=== PATIENT | female | born 1990 | race Caucasian/White ===

== ENCOUNTER 2022-02-15 04:08 | Inpatient (IN) ==
[2022-02-15] MEDS ORDERED: LIDOCAINE 1% LOCAL 20 ML VIAL INFIL PRN (07:05)
[2022-02-15] MEDS ORDERED: OXYTOCIN 30 UNITS/500 ML BAG IV PRN ×3 (07:05→15:20)
--- NOTE | 2022-02-15 07:11 | History & Physical Report ---
Date of Service February 15, 2022 Assessment & Plan (1) Uterine contractions: Plan: 71-elwh-osd-year-old man P0 at 40 weeks and 4 days of gestation presenting with uterine contractions and cervical change, Vital signs stable afebrile, heart rate reassuring, GBS negative, Contractions present but irregular, discussed augmentation with oxytocin per protocol and she agreed. Plan to admit monitor, labs, oxytocin per protocol, All questions were answered. (2) Post-term , 40-42 weeks of gestation: History of Present Illness Chief Complaint: Contractions Primary Care Provider: NO PCP Patient is a 31-year-old G1, P0 at 40 weeks and 4 days of gestation who has been feeling contractions since 12:30 AM this morning. They got more regular and painful after 3 AM. She denies vaginal bleeding nor leakage of fluid. She reports good movements. Her has been uncomplicated except she has a history of hypothyroidism and she takes levothyroxine. When she came here her cervix was 2 cm dilated 70% effaced and -2 per her nurse. Her contractions were every 3 to 6 minutes. She walked around for about 2 hours and came back and she states her contractions are closer and stronger. Allergies Allergy/AdvReac Type Severity Reaction Status Date / Time Penicillins Allergy Unknown RASH Verified 02/15/22 04:22 Home Medications Medication Instructions Recorded Confirmed Type levothyroxine 112 mcg tablet 112 mcg PO DAILY 01/19/22 02/15/22 History vit no.95-ferrous 1 tab PO DAILY 01/19/22 02/15/22 History fumarate 28 mg-folic acid 800 mcg tablet () Patient History Medical History COVID-19 09/2021. Hypothyroidism Surgical History H/O removal of cyst Cyst removal on left hand. [place] teeth extracted 2019 Family History Father Lung cancer Cancer Aunt Breast cancer Aunt Ovarian cancer Mother Hypothyroidism Social History Smoking Status: Never smoker Second Hand Exposure: No; Hx Alcohol Use: No Hx Substance Use: No Preferred Language: Kinyarwanda Communication Ability: Effective Visual Impairment: No Limitations Hearing Ability: Normal Aromatherapist Required: No Beliefs That Will Affect Care: None marital status: marital status details: James Abraham Current Living Situation: Spouse current occupational status: employed current occupation: school counselor How many Children do You have: 0 Other Information That Helps Us Care for You: No Feels Safe at Home: Yes Safety Concerns: Feels Safe At This Time Childhood Exposure to Second-Hand Smoke: No Do you think of yourself as: straight/heterosexual Gender Identity: Female Assistive Devices: Contacts and Glasses MEDICAL BILLING ASSISTANT History Denies history of STDs including chlamydia, gonorrhea, herpes Review of Systems as per Subjective / HPI Physical Exam Constitutional: WD/WN, vitals as above well developed, well nourished and + acute distress (With contractions only) Gastrointestinal (Abdomen): normal bowel sounds, soft, nontender, no hepatosplenomegaly (gravid) Genitourinary: normal external appearance OB Exam Abdomen: + vertex Manual OB Exam: + cervical dilation 3 cm, + cervical effacement 70% and + station -2 OB Exam Monitor Tracing: + external uterine monitor used and + category I Results & Data ([facility]) Vital Signs (Past 12 Hours) Vital Signs Temp Pulse Resp BP 02/15/22 04:24 36.9 C 94 H 18 112/74 02/15/22 07:06 108 H 02/15/22 07:06 120/83 02/15/22 04:19 18 02/15/22 04:19 36.9 C 18 02/15/22 04:18 94 H 112/74
[2022-02-15 07:23] LABS: Hematocrit (blood only) 35.9 % (34.1-44.9); Hemoglobin 12.7 g/dl (12.0-16.0); Mean Corpuscular Hemoglobin 32.1 pg (25.0-34.0); Mean Corpuscular Hgb Conc 35.4 g/dL (32.0-36.0); Mean Corpuscular Volume 90.7 fL (80.0-100.0); Mean Platelet Volume 9.4 fL (9.4-12.3); Platelet Count 221 K/uL (130-400); RDW Coefficient of Variation 12.6 % (11.5-14.5); Red Blood Count 3.96 M/uL (3.93-5.22); White Blood Count 14.17 K/ul (4.8-10.8)
[2022-02-15] MEDS: LEVOTHYROXINE SODIUM 112 MCG TABLET PO SCH (07:38)
[2022-02-15] MEDS: LACTATED RINGER'S 1,000 ML IV PRN ×2 (08:15→09:50)
[2022-02-15] MEDS ORDERED: fentaNYL citrate 100 MCG/2 ML VIAL ONE (08:55)
[2022-02-15] MEDS ORDERED: ePHEDrine sulfate 50 MG/ML AMP ONE (08:55)
[2022-02-15] MEDS ORDERED: SODIUM CHLORIDE 0.9% INJ 10 ML VIAL ONE (08:55)
[2022-02-15] MEDS ORDERED: LIDOCAINE 2%/EPINEPHRINE 1:200,000 20 ML SDV ONE (08:56)
[2022-02-15] MEDS ORDERED: BUPIVACAINE 0.25% 30 ML VIAL ONE (08:56)
[2022-02-15] MEDS ORDERED: fentaNYL 2MCG/ML ROPIVACAINE 1.25MG/ML 100 ML BAG EPI ONE (08:56)
--- NOTE | 2022-02-15 10:05 | Anesthesiology Consultation ---
Date of Service February 15, 2022 Assessment & Plan Chart Review Chart Review: Acceptable Risk for Labor Epidural Consults Requested none History Height/Weight Height: 5 ft 10 in Weight: 112.945 kg Allergies Allergy/AdvReac Type Severity Reaction Status Date / Time Penicillins Allergy Unknown RASH Verified 02/15/22 04:22 Medications Home Medications Medication Instructions Recorded Confirmed Last Taken levothyroxine 112 mcg tablet 112 mcg PO DAILY 01/19/22 02/15/22 02/14/22 06:00 vit no.95-ferrous 1 tab PO DAILY 01/19/22 02/15/22 01/18/22 21:00 fumarate 28 mg-folic acid 800 mcg tablet () Active Medications Generic Name Dose Route Start Last Admin Trade Name Freq PRN Reason Stop Dose Admin Lactated Ringer's 1,000 mls @ 150 mls/hr 02/15/22 07:05 02/15/22 09:50 Lr IV 02/17/22 07:04 125 mls/hr .[id number] PRN Administration L&D Protocol Protocol Oxytocin 30 units in 500 mls @ 2 mls/hr 02/15/22 07:07 02/15/22 09:05 Pitocin IV 02/17/22 07:06 0.12 units/hr .Q24H PRN 2 mls/hr Labor Induction/Augmentation Administration Protocol 0.12 UNITS/HR Levothyroxine Sodium 112 mcg 02/15/22 07:00 02/15/22 07:38 Levothyroxine Sodium 112 Mcg Tablet PO 03/17/22 06:59 112 mcg DAILYBB OMEGA Administration Past Medical History Medical History COVID-19 09/2021. Hypothyroidism Past Family History Family History Father Lung cancer Cancer Aunt Breast cancer Aunt Ovarian cancer Mother Hypothyroidism Past Surgical History Surgical History H/O removal of cyst Cyst removal on left hand. [place] teeth extracted 2019 Social History Smoking Status: Never smoker Hx Alcohol Use: No Hx Substance Use: No substance use type: does not use Physical Exam Vital Signs Last Vital Signs Temp 36.9 C 02/15/22 09:55 Pulse 95 H 02/15/22 10:03 Resp 16 02/15/22 09:55 BP 124/58 L 02/15/22 10:03 Pulse Ox 99 02/15/22 10:03 Testing Laboratory Results 02/15/22 07:13 Blood Type Cancelled 02/15/22 07:13 Blood Type O Positive 02/15/22 07:13 Antibody Screen Cancelled 02/15/22 07:13 Antibody Screen NEGATIVE 02/15/22 07:13
[2022-02-15] MEDS ORDERED: NALBUPHINE HCL INJ 10 MG/ML AMP IV PRN (10:07)
[2022-02-15] MEDS ORDERED: ePHEDrine sulfate 50 MG/ML AMP IV PRN (10:07)
[2022-02-15] MEDS ORDERED: NALOXONE HCL 0.4 MG/1 ML VIAL/CARP IV PRN (10:07)
[2022-02-15] MEDS ORDERED: NALOXONE HCL 1 MG in SODIUM CHLORIDE 0.9% 1000ML 1,000 ML IV PRN (10:07)
[2022-02-15] MEDS ORDERED: fentaNYL 2MCG/ML ROPIVACAINE 1.25MG/ML 100 ML BAG EPI PRN (10:07)
[2022-02-15] MEDS ORDERED: diphenhydrAMINE 50 MG/ML VIAL IV PRN (10:07)
--- NOTE | 2022-02-15 12:01 | Labor Progress Brief Note ---
Date of Service February 15, 2022 Assessment & Plan (1) Post-term , 40-42 weeks of gestation: Plan: Labor augmentation Pt doing well Epidural analgesia FHR; CAT1 Ctx 3-4mins VE;5/50/-1 Pit; 10MU AROM; with amnio hook- clear fluid contiue with Pitocin augmentation Admission and Anticipated Discharge Date Admission Date: February 15, 2022 Results & Data ([facility]) Vital Signs (Past 12 Hours) Vital Signs Temp Pulse Resp BP Pulse Ox 02/15/22 04:24 36.9 C 94 H 18 112/74 02/15/22 11:53 100 02/15/22 11:53 86 02/15/22 11:48 98 02/15/22 11:48 75 02/15/22 11:48 113/59 L 02/15/22 11:43 98 02/15/22 11:43 71 02/15/22 11:38 99 02/15/22 11:38 72 02/15/22 11:33 98 02/15/22 11:33 74 02/15/22 11:32 74 02/15/22 11:32 115/59 L 02/15/22 11:28 97 02/15/22 11:28 76 02/15/22 11:23 99 02/15/22 11:23 70 02/15/22 11:18 99 02/15/22 11:18 75 02/15/22 11:17 85 02/15/22 11:17 104/57 L 02/15/22 11:13 98 02/15/22 11:13 78 02/15/22 11:08 99 02/15/22 11:08 75 02/15/22 11:03 99 02/15/22 11:03 79 02/15/22 11:03 76 02/15/22 11:03 106/59 L 02/15/22 10:58 96 02/15/22 10:58 96 H 02/15/22 10:53 98 02/15/22 10:53 84 02/15/22 10:48 99 02/15/22 10:48 82 02/15/22 10:47 78 02/15/22 10:47 109/59 L 02/15/22 10:43 99 02/15/22 10:43 93 H 02/15/22 10:38 98 02/15/22 10:38 88 02/15/22 10:33 99 02/15/22 10:33 89 02/15/22 10:34 86 02/15/22 10:34 109/64 02/15/22 10:28 98 02/15/22 10:28 79 02/15/22 10:23 99 02/15/22 10:23 90 02/15/22 10:18 99 02/15/22 10:18 91 H 02/15/22 10:18 92 H 02/15/22 10:18 115/70 02/15/22 10:13 97 02/15/22 10:13 82 02/15/22 10:08 99 02/15/22 10:08 82 02/15/22 10:03 99 02/15/22 10:03 95 H 02/15/22 10:03 124/58 L 02/15/22 09:58 97 02/15/22 09:58 95 H 02/15/22 09:40 18 02/15/22 09:40 18 02/15/22 09:55 16 02/15/22 09:55 36.9 C 16 02/15/22 09:53 98 02/15/22 09:53 89 02/15/22 09:48 98 02/15/22 09:48 106 H 02/15/22 09:47 109 H 02/15/22 09:47 110/64 02/15/22 09:43 97 02/15/22 09:43 91 H 02/15/22 09:42 75 02/15/22 09:42 110/59 L 02/15/22 09:38 98 02/15/22 09:38 88 02/15/22 09:36 85 02/15/22 09:36 128/66 02/15/22 09:33 99 02/15/22 09:33 96 H 02/15/22 09:28 99 02/15/22 09:28 103 H 02/15/22 09:23 98 02/15/22 09:23 98 H 02/15/22 09:18 97 02/15/22 09:18 91 H 02/15/22 09:13 97 02/15/22 09:13 89 02/15/22 09:03 87 02/15/22 09:03 116/70 02/15/22 07:06 108 H 02/15/22 07:06 120/83 02/15/22 04:19 18 02/15/22 04:19 36.9 C 18 02/15/22 04:18 94 H 112/74
[2022-02-15] MEDS ORDERED: METHYLERGONOVINE MALEATE 0.2 MG/ML AMP ONE (15:00)
[2022-02-15] MEDS ORDERED: miSOPROStoL 200 MCG TAB ONE (15:00)
[2022-02-15] MEDS ORDERED: DIPHTHERIA/TETANUS/PERTUSSIS 0.5 ML SYR/VIAL IM ONE (15:20)
[2022-02-15] MEDS ORDERED: ACETAMINOPHEN 325 MG TAB PO PRN (15:20)
[2022-02-15] MEDS ORDERED: bisacodyL 10 MG SUPP PR PRN (15:20)
[2022-02-15] MEDS ORDERED: METHYLERGONOVINE MALEATE 0.2 MG/ML AMP IM ONE (15:20)
[2022-02-15] MEDS ORDERED: BENZOCAINE 20% AER SPR 82.5 GM CAN EXT PRN (15:20)
[2022-02-15] MEDS ORDERED: miSOPROStoL 200 MCG TAB PR ONE (15:20)
[2022-02-15] MEDS ORDERED: HYDROCORTISONE ACETATE 25 MG SUPP PR PRN (15:20)
[2022-02-15 15:31] LABS: Base Excess Cord Arterial Bld -3.2 mEq/L (-9-1.8); CO2 Cord Arterial Blood 43 mmHg (39.1-73.5); HCO3 Cord Arterial Blood 23 mmol/L (19.7-28.5); Oxygen Sat Cord Arterial Blood < 60.0 % (<60); PO2 Cord Arterial Blood 25 mmHg (4.1-31.7); pH Cord Arterial Blood 7.33 (7.1-7.38)
[2022-02-15 15:32] LABS: Base Excess Cord Venous Blood -2.8 mEq/L (-7.7-1.9); Cord Venous Blood HCO3 23 mmol/L (18.4-26.8); Cord Venous Blood PCO2 44 mmHg (30.4-57.2); Cord Venous Blood PO2 26 mmHg (14.1-43.3); Cord Venous Blood pH 7.33 (7.20-7.44); O2 Saturation Cord Venous Bld < 60.0 % (<68)
--- NOTE | 2022-02-15 15:50 | Delivery Summary ---
DATE OF SERVICE: 02/15/2022 DELIVERY NOTE: The patient delivered a live , left occiput anterior presentation with a right hand compound presentation. Infant was delivered and placed on mother's abdomen. Delayed cord clamp was performed. Cord gases were obtained. Placenta was spontaneously delivered. Inspection of the placenta shows a normal-looking placenta with 3-vessel cord. Inspection of the perineum shows bilateral periurethral tears, which were repaired with 3-0 Vicryl. Rectal exam post-repair showed good sphincter tone. A red catheter was placed into the bladder to em pty the bladder after the periurethral tears. Estimated blood loss is 450 mL. Baby and mother are doing well in recovery. There was good hemostasi s. All sponges and needles were removed and accounted for x2. The patient is stable in recovery. Job ID: [id number]
--- NOTE | 2022-02-15 16:16 | Anesthesia Procedure Note ---
Date of Service February 15, 2022 Anesthesia Post Epidural Note Vital Signs Vital Signs: Temp Pulse Resp BP Pulse Ox 37.1 C 80 18 119/67 98 02/15/22 14:00 02/15/22 16:02 02/15/22 14:00 02/15/22 16:02 02/15/22 15:18 Notes Mental Status: alert / awake / arousable Nausea / Vomiting: adequately controlled Pain: adequately controlled Airway Patency, RR, SpO2: stable & adequate BP & HR: stable & adequate Hydration State: stable & adequate Neuraxial Anesthesia: was administered and sensory block is resolving Anesthetic Complications: no major complications apparent and Pt Satisfied with anesthetic care Epidural: Removed without complications and With tip intact
[2022-02-15] MEDS: DOCUSATE SODIUM 100 MG CAP PO SCH (20:47)
[2022-02-15] MEDS: IBUPROFEN 600 MG TAB PO PRN (20:49)
[2022-02-16] MEDS: IBUPROFEN 600 MG TAB PO PRN ×4 (03:44→22:18)
[2022-02-16] MEDS ORDERED: LEVOTHYROXINE SODIUM 112 MCG TABLET PO SCH (06:30)
[2022-02-16 06:51] LABS: Hematocrit (blood only) 33.9 % (34.1-44.9); Hemoglobin 11.8 g/dl (12.0-16.0); Mean Corpuscular Hemoglobin 31.5 pg (25.0-34.0); Mean Corpuscular Hgb Conc 34.8 g/dL (32.0-36.0); Mean Corpuscular Volume 90.4 fL (80.0-100.0); Mean Platelet Volume 9.7 fL (9.4-12.3); Platelet Count 198 K/uL (130-400); RDW Standard Deviation 42.4 fL (36.4-46.3); Red Blood Count 3.75 M/uL (3.93-5.22); White Blood Count 14.18 K/ul (4.8-10.8)
[2022-02-16] MEDS: LEVOTHYROXINE SODIUM 112 MCG TABLET PO SCH (06:55)
[2022-02-16] MEDS: PRENATAL VITAMIN 1 TAB PO SCH (08:25)
[2022-02-16] MEDS: DOCUSATE SODIUM 100 MG CAP PO SCH ×2 (08:25→22:18)
--- NOTE | 2022-02-16 11:21 | Obstetrical Progress Note ---
Date of Service February 16, 2022 Subjective Ambulation: ambulating normally Voiding: no voiding problems Passing Gas:: Yes Diet Tolerance:: regular diet Lochia:: Small Feeding Type:: breast feeding Current Pain Level(1-10): 0 Physical Exam Constitutional WD/WN, vitals as above Gastrointestinal (Abdomen) abdomen soft/fundus firm below U Musculoskeletal Extremities: extremities normal to inspection Skin no rashes, warm and dry Neurologic patellar DTR's 2+ bilat, sensation intact Psychiatric A+Ox3, euthymic affect Results & Data ([facility]) Vital Signs (Past 12 Hours) Vital Signs Temp Pulse Resp BP Pulse Ox O2 Del Method 02/16/22 07:25 36.7 C 70 18 112/71 97 Room Air 02/16/22 03:45 36.5 C 72 18 105/70 97 Room Air 02/15/22 23:30 36.5 C 70 18 113/72 97 Room Air Laboratory Results 02/15/22 02/15/22 02/15/22 07:12 07:13 07:13 WBC 14.17 H RBC 3.96 Hgb 12.7 Hct 35.9 MCV 90.7 MCH 32.1 MCHC 35.4 RDW Std Deviation 42.0 RDW Coeff of Torres 12.6 Plt Count 221 MPV 9.4 Cord ABG pH Cord ABG pCO2 Cord ABG pO2 Cord ABG HCO3 Cord ABG Base Excess Cord ABG O2 Sat Cord VBG pH Cord VBG pCO2 Cord VBG pO2 Cord VBG HCO3 Cord VBG Base Excess Cord VBG O2 Sat Blood Gas Comments SARS-CoV-2, RNA, NAAT NEGATIVE Blood Type O Positive Antibody Screen NEGATIVE 02/15/22 02/15/22 02/15/22 07:13 14:55 14:55 WBC RBC Hgb Hct MCV MCH MCHC RDW Std Deviation RDW Coeff of Torres Plt Count MPV Cord ABG pH 7.33 Cord ABG pCO2 43 Cord ABG pO2 25 Cord ABG HCO3 23 Cord ABG Base Excess -3.2 Cord ABG O2 Sat < 60.0 Cord VBG pH 7.33 Cord VBG pCO2 44 Cord VBG pO2 26 Cord VBG HCO3 23 Cord VBG Base Excess -2.8 Cord VBG O2 Sat < 60.0 Blood Gas Comments WETZEL WETZEL SARS-CoV-2, RNA, NAAT Blood Type Cancelled Antibody Screen Cancelled 02/16/22 05:56 WBC 14.18 H RBC 3.75 L Hgb 11.8 L Hct 33.9 L MCV 90.4 MCH 31.5 MCHC 34.8 RDW Std Deviation 42.4 RDW Coeff of Torres 13.0 Plt Count 198 MPV 9.7 Cord ABG pH Cord ABG pCO2 Cord ABG pO2 Cord ABG HCO3 Cord ABG Base Excess Cord ABG O2 Sat Cord VBG pH Cord VBG pCO2 Cord VBG pO2 Cord VBG HCO3 Cord VBG Base Excess Cord VBG O2 Sat Blood Gas Comments SARS-CoV-2, RNA, NAAT Blood Type Antibody Screen
[2022-02-16] MEDS ORDERED: bisacodyL 5 MG TABEC PO SCH ×2 (20:00)
[2022-02-17] MEDS: LEVOTHYROXINE SODIUM 112 MCG TABLET PO SCH (06:22)
[2022-02-17 06:50] LABS: Hemoglobin 12.2 g/dl (12.0-16.0)
[2022-02-17] MEDS: IBUPROFEN 600 MG TAB PO PRN (07:55)
[2022-02-17] MEDS: PRENATAL VITAMIN 1 TAB PO SCH (07:55)
[2022-02-17] MEDS: DOCUSATE SODIUM 100 MG CAP PO SCH (07:55)
--- NOTE | 2022-02-17 08:50 | Progress Note ---
Date of Service February 17, 2022 Assessment & Plan Admission and Anticipated Discharge Date Admission Date: February 15, 2022 Subjective doing well. oob ok. no pain. wants to go home today Physical Exam Constitutional: WD/WN, vitals as above Gastrointestinal (Abdomen): normal bowel sounds, soft, nontender, no hepatosplenomegaly fundus firm below U. Musculoskeletal: Extremities: extremities normal to inspection Skin: no rashes, warm and dry Neurologic: patellar DTR's 2+ bilat, sensation intact Psychiatric: A+Ox3, euthymic affect Results & Data ([facility]) Vital Signs (Past 12 Hours) Vital Signs Temp Pulse Resp BP Pulse Ox O2 Del Method 02/16/22 23:20 36.8 C 64 18 110/72 99 Room Air 02/16/22 22:22 36.5 C 70 18 108/70 99 Room Air Laboratory Results Laboratory Results - last 48 hr 02/15/22 02/15/22 02/15/22 07:13 14:55 14:55 WBC RBC Hgb Hct MCV MCH MCHC RDW Std Deviation RDW Coeff of Torres Plt Count MPV Cord ABG pH 7.33 Cord ABG pCO2 43 Cord ABG pO2 25 Cord ABG HCO3 23 Cord ABG Base Excess -3.2 Cord ABG O2 Sat < 60.0 Cord VBG pH 7.33 Cord VBG pCO2 44 Cord VBG pO2 26 Cord VBG HCO3 23 Cord VBG Base Excess -2.8 Cord VBG O2 Sat < 60.0 Blood Gas Comments WETZEL WETZEL Blood Type O Positive Antibody Screen NEGATIVE 02/16/22 02/17/22 05:56 06:39 WBC 14.18 H RBC 3.75 L Hgb 11.8 L 12.2 Hct 33.9 L 35.0 MCV 90.4 MCH 31.5 MCHC 34.8 RDW Std Deviation 42.4 RDW Coeff of Torres 13.0 Plt Count 198 MPV 9.7 Cord ABG pH Cord ABG pCO2 Cord ABG pO2 Cord ABG HCO3 Cord ABG Base Excess Cord ABG O2 Sat Cord VBG pH Cord VBG pCO2 Cord VBG pO2 Cord VBG HCO3 Cord VBG Base Excess Cord VBG O2 Sat Blood Gas Comments Blood Type Antibody Screen
== END 2022-02-17 12:46 | disposition home or self-care (01) | DRG 807 ==
LOC: OPB 04:08 → 4S1 04:10 → 4E2 17:50

== ENCOUNTER 2023-12-05 07:54 | Inpatient (IN) ==
[2023-12-05] MEDS ORDERED: LIDOCAINE 1% LOCAL 20 ML VIAL INFIL PRN (08:09)
[2023-12-05] MEDS ORDERED: OXYTOCIN 30 UNITS/NSS 30 UNITS/500 ML BAG IV PRN (08:09)
[2023-12-05] MEDS ORDERED: CALCIUM CARBONATE 500 MG CHEWABLE TAB PO PRN (08:09)
[2023-12-05] MEDS ORDERED: ACETAMINOPHEN 325 MG TAB PO PRN (08:09)
--- NOTE | 2023-12-05 08:15 | History & Physical Report ---
Date of Service December 05, 2023 Assessment & Plan (1) Encounter for elective induction of labor: Plan: induction of labor Admission and Anticipated Discharge Date Admission Date: December 05, 2023 History of Present Illness Chief Complaint: induction of labor Primary Care Provider: DONTAE PCP 33 F P0000 at 39 weeks admitted for elective induction of labor. GBS is negative. Allergies Allergy/AdvReac Type Severity Reaction Status Date / Time Penicillins Allergy Unknown RASH Verified 02/15/22 04:22 Home Medications Medication Instructions Recorded Confirmed Type levothyroxine 112 mcg tablet 112 mcg PO DAILY 01/19/22 12/05/23 History vit no.95-ferrous 1 tab PO DAILY 01/19/22 12/05/23 History fumarate 28 mg-folic acid 800 mcg tablet () Patient History Medical History COVID-19 09/2021. Hypothyroidism Surgical History [place] teeth extracted 2020 H/O removal of cyst Cyst removal on left hand. Family History Father Lung cancer Cancer Aunt Breast cancer Aunt Ovarian cancer Mother Hypothyroidism Social History Smoking Status: Never smoker Second Hand Exposure: No; Hx Alcohol Use: No Hx Substance Use: No Preferred Language: Khmer Communication Ability: Effective Visual Impairment: No Limitations Hearing Ability: Normal Door Worker Required: No Beliefs That Will Affect Care: None marital status: marital status details: James Abraham Current Living Situation: Spouse current occupational status: employed current occupation: school counselor How many Children do You have: 0 Other Information That Helps Us Care for You: No Feels Safe at Home: Yes Safety Concerns: Feels Safe At This Time Childhood Exposure to Second-Hand Smoke: No Diet: regular Do you think of yourself as: straight/heterosexual Gender Identity: Female Assistive Devices: None 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 Review of Systems All systems reviewed & are unremarkable except as noted in HPI & below Physical Exam Constitutional: WD/WN, vitals as above Eyes: PERRL, conjunctivae normal, anicteric sclerae Respiratory: normal respiratory effort, lungs clear to auscultation Cardiovascular: RRR, no murmur, no edema Musculoskeletal: Extremities: extremities normal to inspection Skin: no rashes, warm and dry Neurologic: patellar DTR's 2+ bilat, sensation intact Psychiatric: A+Ox3, euthymic affect Genitourinary: Manual OB Exam: + cervical dilation fingertip, + cervical effacement 50% and + station high OB Exam Monitor Tracing: + external FHT monitor used, + external uterine monitor used, + category I and + normal FHT variability Will start with Cytotec 50 mcg every 4 hours for cervical ripening Code Status & VTE Plan VTE Prophylaxis Plan VTE Prophylaxis will be ordered: No Monitoring External Monitor Cat 1
[2023-12-05 08:52] LABS: Hematocrit (blood only) 34.9 % (37.0-47.0); Mean Corpuscular Hgb Conc 34.4 g/dL (32.0-36.0); Mean Corpuscular Volume 90.2 fL (80.0-100.0); Mean Platelet Volume 9.2 fL (9.4-12.4); Platelet Count 205 K/uL (130-400); RDW Standard Deviation 42.5 fL (36.4-46.3); Red Blood Count 3.87 M/uL (4.20-5.40)
[2023-12-05] MEDS: miSOPROStoL 50 MCG TAB PO SCH (09:01)
--- NOTE | 2023-12-05 13:08 | Labor Progress Brief Note ---
Date of Service December 05, 2023 Assessment & Plan Admission and Anticipated Discharge Date Admission Date: December 05, 2023 Physical Exam Genitourinary: Manual OB Exam: + cervical dilation 1 cm and 2 cm, + cervical effacement 60% and + station -2 OB Exam Monitor Tracing: + external FHT monitor used, + external uterine monitor used, + category I and + normal FHT variability Will start Oxytocin to augment contractions Results & Data Vital Signs (Past 12 Hours) Vital Signs Temp Pulse Resp BP 12/05/23 11:03 36.5 C 82 20 109/59 L 12/05/23 08:18 37.5 C 91 H 20 116/64 12/05/23 08:11 37.5 C 20
[2023-12-05] MEDS: LACTATED RINGER'S 1,000 ML IV PRN (13:15)
[2023-12-05] MEDS: OXYTOCIN 30 UNITS/NSS 30 UNITS/500 ML BAG IV PRN (13:18)
[2023-12-05] MEDS ORDERED: Nursing to Pharmacy Communication SCH (15:00)
--- NOTE | 2023-12-05 17:13 | Labor Progress Brief Note ---
Date of Service December 05, 2023 Assessment & Plan Admission and Anticipated Discharge Date Admission Date: December 05, 2023 Physical Exam Genitourinary: Manual OB Exam: + cervical dilation 2 cm and 3 cm, + cervical effacement 60% and + station -2 OB Exam Monitor Tracing: + external FHT monitor used, + external uterine monitor used, + category I and + normal FHT variability patient requesting epidural before AROM Results & Data Vital Signs (Past 12 Hours) Vital Signs Temp Pulse Resp BP 12/05/23 16:59 78 108/67 12/05/23 16:17 77 18 109/67 12/05/23 15:13 20 12/05/23 15:13 36.9 C 20 12/05/23 15:08 92 H 115/75 12/05/23 14:10 86 18 118/64 12/05/23 14:02 86 18 118/64 12/05/23 13:21 93 H 112/71 12/05/23 11:03 36.5 C 82 20 109/59 L 12/05/23 08:18 37.5 C 91 H 20 116/64 12/05/23 08:11 37.5 C 20
--- NOTE | 2023-12-05 17:19 | Anesthesiology Consultation ---
Date of Service December 05, 2023 Assessment & Plan (1) Encounter for pre-operative examination: Chart Review Chart Review: Acceptable Risk for Labor Epidural History Height/Weight Height: 5 ft 10 in Weight: 117.934 kg Allergies Allergy/AdvReac Type Severity Reaction Status Date / Time Penicillins Allergy Unknown RASH Verified 02/15/22 04:22 Medications Home Medications Medication Instructions Recorded Confirmed Last Taken levothyroxine 112 mcg tablet 112 mcg PO DAILY 01/19/22 12/05/23 12/05/23 vit no.95-ferrous 1 tab PO DAILY 01/19/22 12/05/23 12/04/23 fumarate 28 mg-folic acid 800 mcg tablet () Active Medications Generic Name Dose Route Start Last Admin Trade Name Freq PRN Reason Stop Dose Admin Lactated Ringer's 1,000 mls @ 125 mls/hr 12/05/23 08:09 12/05/23 13:15 Lr IV 12/07/23 08:08 125 mls/hr .Q8H PRN Administration L&D Protocol Protocol Oxytocin 30 units in 500 mls @ 5 mls/hr 12/05/23 13:08 12/05/23 14:40 Pitocin 30 Units/Nss IV 12/07/23 13:07 0.3 units/hr .Q24H PRN 5 mls/hr Labor Induction/Augmentation Titration Protocol 0.3 UNITS/HR Past Medical History Medical History COVID-19 09/2021. Hypothyroidism Past Family History Family History Father Lung cancer Cancer Aunt Breast cancer Aunt Ovarian cancer Mother Hypothyroidism Past Surgical History Surgical History [place] teeth extracted 2019 H/O removal of cyst Cyst removal on left hand. Social History Smoking Status: Never smoker Hx Alcohol Use: No Hx Substance Use: No substance use type: does not use Physical Exam Vital Signs Last Vital Signs Temp 36.9 C 12/05/23 15:13 Pulse 78 12/05/23 17:16 Resp 18 12/05/23 16:17 BP 108/67 12/05/23 16:59 Pulse Ox 99 12/05/23 17:16 Testing Laboratory Results 12/05/23 08:37 Blood Type O Positive 12/05/23 08:37 Antibody Screen NEGATIVE 12/05/23 08:37
[2023-12-05] MEDS: BUPIVACAINE 0.25% PF 30 ML VIAL ONE (17:43)
[2023-12-05] MEDS: LIDOCAINE 2%/EPINEPHRINE 1:200,000 20 ML PF ONE (17:43)
[2023-12-05] MEDS: fentaNYL citrate PF 100 MCG/2 ML VIAL ONE (17:43)
[2023-12-05] MEDS: ePHEDrine sulfate 50 MG/ML AMP ONE (17:48)
[2023-12-05] MEDS: fentANYL 2 MCG/ML BUPIVacaine 0.125%-NSS 100ML BAG ONE (17:49)
[2023-12-05] MEDS ORDERED: SODIUM CHLORIDE 0.9% PF INJ 10 ML VIAL EPI PRN (17:53)
[2023-12-05] MEDS ORDERED: ONDANSETRON INJ 2 MG/ML 2 ML VIAL IV PRN (17:53)
[2023-12-05] MEDS ORDERED: NALOXONE HCL 1 MG in SODIUM CHLORIDE 0.9% 1,000 ML IV PRN (17:53)
[2023-12-05] MEDS ORDERED: NALOXONE HCL 0.4 MG/1 ML VIAL/CARP IV PRN (17:53)
[2023-12-05] MEDS ORDERED: BUPIVACAINE 0.25% PF 30 ML VIAL EPI PRN (17:53)
[2023-12-05] MEDS ORDERED: ePHEDrine sulfate 50 MG/ML AMP IV PRN (17:53)
[2023-12-05] MEDS ORDERED: ROPIVACAINE 0.5% PF 5 MG/ML 20 ML VIAL EPI PRN (17:53)
[2023-12-05] MEDS ORDERED: fentANYL 2 MCG/ML BUPIVacaine 0.125%-NSS 100ML BAG EPI PRN (17:53)
[2023-12-05] MEDS ORDERED: fentaNYL citrate PF 100 MCG/2 ML VIAL EPI PRN (17:53)
[2023-12-05] MEDS ORDERED: LIDOCAINE 2% MPF LOCAL 5 ML VIAL EPI PRN (17:53)
[2023-12-05] MEDS: SODIUM CHLORIDE 0.9% PF INJ 10 ML VIAL ONE (18:14)
--- NOTE | 2023-12-05 18:24 | Labor Progress Brief Note ---
Date of Service December 05, 2023 Assessment & Plan Admission and Anticipated Discharge Date Admission Date: December 05, 2023 Physical Exam Genitourinary: Manual OB Exam: + cervical dilation 3 cm and 4 cm, + cervical effacement 70%, + station -2 and + amniotic fluid clear OB Exam Monitor Tracing: + external FHT monitor used, + external uterine monitor used, + category I and + normal FHT variability AROM with Amni-hook clear fluid Results & Data Vital Signs (Past 12 Hours) Vital Signs Temp Pulse Resp BP Pulse Ox 12/05/23 18:21 97 H 99 12/05/23 18:18 97 H 108/59 L 12/05/23 18:16 98 12/05/23 18:16 98 H 12/05/23 18:16 91 H 106/61 12/05/23 18:14 97 H 106/58 L 12/05/23 18:12 80 106/59 L 12/05/23 18:11 94 H 99 12/05/23 18:10 107 H 105/64 12/05/23 18:08 105 H 100/57 L 12/05/23 18:06 99 12/05/23 18:06 85 12/05/23 18:06 92 H 107/51 L 12/05/23 18:04 96 H 116/59 L 12/05/23 18:02 88 102/55 L 12/05/23 18:01 91 H 98 12/05/23 18:00 98 H 18 97/55 L 12/05/23 17:58 96 H 113/56 L 12/05/23 17:56 98 H 16 102/55 L 98 12/05/23 17:54 81 106/55 L 12/05/23 17:52 97 H 16 88/54 L 12/05/23 17:51 93 H 98 12/05/23 17:50 88 16 95/52 L 12/05/23 17:48 111 H 16 94/58 L 12/05/23 17:46 95 12/05/23 17:46 82 12/05/23 17:46 86 86/53 L 12/05/23 17:44 75 90/45 L 12/05/23 17:43 82 18 100/51 L 12/05/23 17:41 84 96 12/05/23 17:38 85 18 98/56 L 12/05/23 17:36 79 97 12/05/23 17:31 92 H 98 12/05/23 17:26 87 99 12/05/23 17:21 75 98 12/05/23 17:16 78 99 12/05/23 16:59 78 108/67 12/05/23 16:17 77 18 109/67 12/05/23 15:13 20 12/05/23 15:13 36.9 C 20 12/05/23 15:08 92 H 115/75 12/05/23 14:10 86 18 118/64 12/05/23 14:02 86 18 118/64 12/05/23 13:21 93 H 112/71 12/05/23 11:03 36.5 C 82 20 109/59 L 12/05/23 08:18 37.5 C 91 H 20 116/64 12/05/23 08:11 37.5 C 20
[2023-12-05] MEDS: fentaNYL citrate PF 100 MCG/2 ML VIAL EPI STA (18:48)
[2023-12-05] MEDS: LIDOCAINE 2%/EPINEPHRINE 1:200,000 20 ML PF EPI STA (18:48)
[2023-12-05] MEDS: BUPIVACAINE 0.25% PF 30 ML VIAL EPI STA (18:48)
[2023-12-05] MEDS: SODIUM CHLORIDE 0.9% PF INJ 10 ML VIAL EPI STA (18:49)
--- OUTSIDE RECORDS SUMMARY | 2023-12-05 19:56 | External Medical Summary | Summary of Care ---
Author Name Unknown Organization [facility] Address [address] [place] [address] Phone [phone] Care Team Providers Care Clay Press Operator Name Role Phone Terri Iniguez MD Primary Care Provid er Reason for Referral * Evaluate & Treat - Unlimited Visits (Within 3 days (urgent)) - Pending Review Specialty Diagnoses / Procedures Referred By Contshannen t Referred To Contact Obstetrics/Gynecology / Maternal Medicine Diagnoses Abnormal ultrasound Loree Rodriguez PA-C [address] [place] [address] Referral ID Status Reason Start Date Expiration Date Visits Requested Visits Authorized [id number] Pending Review Specialty Services Required 10/19/[phone] Question Answer Has the patient had a viability scan? No Reason for referral Ultrasound only Referral Priority Within 3 days (urgent) Where should this appointment be scheduled? [facility] Comments /Para: LMP: Patient's last menstrual period was 03/04/2023 (exact date). Patient is . ADI: 12/09/2023, by Last Menstrual Period Pre-Gravid BMI: 30.42 Reason for Visit * Reason Comments Return Visit Encounter Details Date Type Department Care Team (Late st Contact Info) Description 10/19/2023 11:30 AM EDT Office Visit Gynecology/Obstetric s [facility] [address] [place] [address] Loree Rodriguez PA-C [address] [place] [phone] Normal in third trimester*; Hypothyroidism affecting in third trimester; Multigravida of advanced maternal age in third trimester; Obesity in , antepartum; Abnormal ultrasound Allergies Active Allergy Reactions Criticality Noted Date Comments Cephalosporins Rash 02/12/2010 documented as of this encounter (statuses as of 10/19/2023) Medications Medication Sig Dispensed Refills Start Date End Date Status Formula 28-0.8-235 MG Oral Capsule Take by mouth. Active Ondansetron 4 MG Oral Tablet Disintegrating (Zofran)Indications: Nausea and vomiting during Place 1 Tablet on tongue every 8 hours as needed for Nausea. dissolve on tongue. 30 Tablet 1 05/30/2023 Active Additional Information Patient not taking.Reported on 10/19/2023 Levothyroxine Sodium 112 MCG Oral Tablet (Levoxyl)Indications :Family history of Dinh thyroiditis,Hypothyr oidism, unspecified type 1 tab Sunday to Sunday and 2 tabs on sundays(at least 30 min prior to breakfast or other meds) 100 Tablet 3 07/18/2023 Active documented as of this encounter (statuses as of 10/19/2023) Active Problems Problem Noted Date Diagnosed Date Normal 05/01/2023 AMA (advanced maternal age) multigravida 35+ 09/2022 Overview: Age 33 at delivery NIPT: MFM ordered MFM nuchal translucency scheduled 05/24/2023 MFM anatomy scan scheduled 07/16/2023 Genetic referral: declines at this time Last Assessment & Plan: She presents for a anatomy survey secondary to advanced maternal age, hypothyroidism and class I obesity. Labs reviewed: -- cffDNA low risk for aneuploidy -- early 1 hour GCT not elevated -- TSH 2.9 on 07/10/23 -- managed by endocrinology We reviewed the results of today's ultrasound. The estimated weight is appropriate for gestational age. The visualized anatomy is unremarkable in appearance. The amniotic fluid amount appears normal. We discussed that ultrasound is not able to identify all anomalies, but it is reassuring that no anomalies were seen today. Obesity in , antepartum 05/01/2023 Overview: Pre gravid BMI: 30.4 Class 1 Early 1 hour GTT 66 Baseline Preeclampsia Labs Lab Results Component Value Date/Time PLATELET AUTO - [facility] 279 05/01/2023 10:06 AM CREATININE - [facility] 0.7 11/17/2022 10:36 AM AST - [facility] 17 11/17/2022 10:36 AM ALT - [facility] 16 11/17/2022 10:36 AM Last Assessment & Plan: DISCUSSION: 1. Discussed obstetrical risks associated with class I obesity (pre- BMI of 30 to 34.9) to include increased incidence of the following: spontaneous miscarriage, recurrent loss, diabetes in , hypertension/pre-eclampsia, IUFD, macrosomia and shoulder dystocia, hemorrhage or infection, venous thromboembolism, increased length of labor and delivery, complications with anesthesia, as well as a possibly increased risk of congenital anomalies (neural tube defects, cardiovascular, orofacial). 2. Reviewed that the accuracy of ultrasound at diagnosing anomalies is significantly decreased for women with an increased BMI. RECOMMENDATIONS: 1. Recommend restricting weight gain during to 11-20 pounds. Consider referral for nutrition consult. 2. Recommend evaluation for signs and symptoms (snoring, excessive daytime sleepiness witnessed apnea or unexplained hypoxia) of obstructive sleep apnea. If any of these are present, referral to Sleep Medicine specialist for further evaluation should be considered. 3. Recommend performing gestational diabetes mellitus screen at first visit and repeat again at 26-28 weeks if early screen is normal. 4. Recommend Maternal- Medicine ultrasound for anatomy at 20 weeks. Hypothyroid 07/04/2021 Hypothyroidism affecting 07/04/2021 Overview: Managed with Levothyroxine 112 mcg daily Lab Results Component Value Date/Time TSH - [facility] 1.06 04/23/2023 01:02 PM Last Assessment & Plan: She presents for follow-up of growth secondary to advanced maternal age, hypothyroidism with a recent medication change, and class I obesity. Today's ultrasound notes the following: The estimated weight is appropriate for gestational age in the 54th percentile. The visualized anatomy is unremarkable in appearance. The amniotic fluid amount appears normal. COVID-19 vaccine series completed 07/04/2021 Overview: Completed Covid Pfizer vaccine 08/27/20 Had Covid booster 03/26/21 Last Assessment & Plan: During the visit today, COVID-19 vaccination was discussed and all questions were answered. The following information was shared with the patient. The [employer], Society for Maternal- Medicine, CDC and multiple medical associations strongly recommend the COVID-19 vaccine for women who are in any trimester, those attempting to become , women who have recently delivered, who are lactating as well as any other woman, regardless of age or COLLECTIONS REP disorder. The only exceptions to receiving the vaccine are for those who have a contraindication or allergy to the vaccine or any component of the vaccine or with sincerely held religion convictions. The CDC and ACOG encourages a COVID-19 vaccine booster for women, given the risk of severe complications from COVID-19 in . Estimated Date of Delivery Comme nts Yes 12/09/2023 Based on last me nstrual period of 03/04/2023 (Exact Date) documented as of this encounter (statuses as of 10/19/2023) Resolved Problems Problem Noted Date Diagnosed Date Resolved Date Supervision of high risk pre gnancy in first trimester 05/08/2023 05/30/2023 with 9 completed weeks gestation 05/08/2023 05/24/2023 COVID-19 affecting , antepartum 10/28/2021 05/01/2023 Overview: dx'd 10/19 Supervision of normal first 07/04/2021 03/30/2022 Overview: Received covid vax x2 and booster documented as of this encounter (statuses as of 10/19/2023) Immunizations Name Administration Dates Next Due COVID-19 mRNA, LNP-s, No Pre serve, 2-Dose Series (Pfizer) 08/27/2020,08/06/2020 Seasonal Influenza, PF, 6 M & above, IM , (FluLaval or Fluzone) 02/09/2022,07/04/2021 TDAP (age 10 and older)(Boostrix) 2023,05/2021 documented as of this encounter Social History Tobacco Use Types Packs/Day Years Used Date Smoking Tobacco: Never Passive Smoke Exposure: Past Smokeless Tobacco: Never Alcohol Use Standard Drinks/Week Comments Not Currently 0 (1 standard drink = 0.6 oz pur e alcohol) on weekends AUDIT-C Answer Date Recorded Q1: How often do you have a drink containing alc ohol? Patient declined 06/29/2020 Q2: How many drinks containi ng alcohol do you have on a typical day when you are drinking? Patient declined 06/29/2020 Q3: How often do you have si x or more drinks on one occasion? Patient declined 06/29/2020 PHQ-2 Answer Date Recorded PHQ Adult Total Score 0 2023 Hunger Vital Sign Answer Date Recorded Within the past 12 months, y ou worried that your food would run out before you got the money to buy more. Never true 05/01/20 23 Within the past 12 months, t he food you bought just didn't last and you didn't have money to get more. Never true 05/01/2023 [place] Depression Scale Answer Date Recorded [place] Depression Scale Total 4 2023 The thought of harming myself has occurred to me . Never 2023 Estimated Date of Delivery Comme nts Yes 12/09/2023 Based on last me nstrual period of 03/04/2023 (Exact Date) Sex and Gender Information Value Date Recorded Sex Assigned at Female 05/01/2023 9:36 AM EST Gender Identity Female 05/01/2023 9:36 AM EST Sexual Orientation Straight 05/01/2023 9: 36 AM EST Job Start Date Occupation Industry Not on file Not on file Not on file documented as of this encounter Last Filed Vital Signs Vital Sign Reading Time Taken Comments Blood Pressure 108/64 10/19/2023 11:18 AM EDT Pulse - - Temperature - - Respiratory Rate - - Oxygen Saturation - - Inhaled Oxygen Concentration - - Weight 114.4 kg (252 lb 3.2 oz) 024 11:18 AM EDT Height 177.8 cm (5' 10") 10/19/2023 11: 18 AM EDT Body Mass Index 36.19 10/19/2023 11:18 AM EDT documented in this encounter Progress Notes * Loree Rodriguez PA-C - 10/19/2023 11:28 AM EDT 32w5d No concerns or complaints. Doing well. Growth done today for S>D last visit. Reviewed with patient today: Borderline large biparietal diameter. Remainder growth normal, normal SEAN, vertex. Discussed findings and repeat ultrasound locally in 4 weeks vs MFM referral. Pt previously seen by MFM in this -- prefers referral back.Order placed. Denies LOF, VB, contractions. Baby is active. RTC in 2 weeks Loree Rodriguez PA-C documented in this encounter Plan of Treatment Upcoming Encounters Date Type Department Care Team (Late st Contact Info) Description 11/06/2023 11:45 AM EDT Office Visit Gynecology/Obstetrics [facility] [address] [facility] [place] [phone] BackerJacklyn CRNP [address] [facility] [place] [address] 04/29/2024 3:20 PM EST [facility] [address] [place] [address] Stephanie Manley MD [address] [place] [address] Scheduled Orders Name Type Priority Associated Diagnoses Orde r Schedule MFM US MATERNAL 1ST FETUS Medical Imaging Routine Abnormal ultrasound Expected: 10/19/2023, Expires: 11/18/2024 Scheduled Referrals Name Type Priority Associated Diagnoses Orde r Schedule MATERNAL MEDICINE REFERRAL OP Referral Within 3 days (urgent) Abnormal ultrasound Ordered: 10/19/2023 Health Maintenance Due Date Last Done Comments Hepatitis B (1 of 3 - 19+ 3-dose series) 09/22/2007 COVID-19 Vaccine (3 - season) 2023 08/27/2020, 08/06/2020 Influenza Vaccine (FLU shot) (Season Ended) 2024 02/09/2022, 07/04/2021 Depression Screening 09/20/2024 2023 TSH 09/20/2024 2023, 0410/2023, 08/23/2023, Additional history exists Diabetes Screening 11/17/2025 11/17/2022, 12/23/2021 Pap Smear 05/01/2026 05/01/2023, 06/29/2020 Cervical Cancer Screening 05/01/2028 HPV/Co-Test 05/01/2028 05/01/2023 DTaP,Tdap,and Td Vaccines (3 - Td or Tdap) 09/20/2033 2023, 11/25/2021 GARDASIL-HPV IMMUNIZATION SERIES Aged Out No longer eligible based on patient's age to complete this topic MENINGOCOCCAL (MENACTRA/MENVEO) Aged Out No longer eligible based on patient's age to complete this topic Pneumococcal Vaccine: Pediatrics (0 to 5 Years) and At-Risk Patients (6 to 64 Years) Aged Out No longer eligible based on patient's age to complete this topic documented as of this encounter Medical Devices Not on filedocumented as of this encounter Visit Diagnoses Diagnosis Normal in third trimester- Primary Hypothyroidism affecting in third trimester Multigravida of advanced maternal age in third trimester Obesity in , antepartum Obesity complicating , childbirth, or the puerperium, antepartum condition or complication Abnormal ultrasound Abnormal findings on screening documented in this encounter Additional Health Concerns Infection Onset Date Last Indicated Resolved Time COVID-19 (confirmed) 10/18/2021 10/18/2021 documented as of this encounter Care Teams Clay Press Operator Relationship Specialty Start Date End Date Terri Iniguez MD [address] [facility] [place] [address] PCP - General Family Medicine 03/27/22 documented as of this encounter
--- OUTSIDE RECORDS SUMMARY | 2023-12-05 19:56 | External Medical Summary | Summary of Care ---
Author Name Unknown Organization [facility] Address [address] [facility] [place] [address] Phone [phone] Care Team Providers Care Special Effects Artist Name Role Phone Terri Iniguez MD Primary Care Provid er Reason for Visit * Reason Comments Return Visit Encounter Details Date Type Department Care Team (Late st Contact Info) Description 11/26/2023 10:45 AM EDT Office Visit Gynecology/Obstetric s [facility] [address] [place] [address] Jacklyn Mclaughlin CRNP [address] [place] [address] Normal in third trimester*; Hypothyroidism affecting in third trimester; Multigravida of advanced maternal age in third trimester; Obesity in , antepartum Allergies Active Allergy Reactions Criticality Noted Date Comments Cephalosporins Rash 02/12/2010 documented as of this encounter (statuses as of 11/26/2023) Medications Medication Sig Dispensed Refills Start Date End Date Status Formula 28-0.8-235 MG Oral Capsule Take by mouth. Active Levothyroxine Sodium 112 MCG Oral Tablet (Levoxyl)Indications :Family history of Dinh thyroiditis,Hypothyr oidism, unspecified type 1 tab Sunday to Sunday and 2 tabs on sundays(at least 30 min prior to breakfast or other meds) 100 Tablet 3 07/18/2023 Active documented as of this encounter (statuses as of 11/26/2023) Active Problems Problem Noted Date Diagnosed Date Normal 05/01/2023 AMA (advanced maternal age) multigravida 35+ 09/2022 Overview: Age 33 at delivery NIPT: MFM ordered MFM nuchal translucency scheduled 05/24/2023 MFM anatomy scan scheduled 07/16/2023 Genetic referral: declines at this time Last Assessment & Plan: I reviewed the ultrasound with her. The anatomy that was visualized appears unremarkable and the biometry is appropriate for the gestational age. The biparietal diameter is consistent with the 99th percentile for the gestational age and the overall head circumference is consistent with the 89th percentile for the gestational age. The intracranial anatomy is unremarkable. The fetus is in the vertex presentation and the amniotic fluid volume is normal at 17 cm. At this point, there is no clinical indication for return. Obesity in , antepartum 05/01/2023 Overview: Pre [...] Results Component Value Date/Time TSH - [facility] 2.17 2023 09:34 AM TSH - [facility] 2.20 2023 09:34 AM Last Assessment & Plan: She presents for [...] information was shared with the patient. The [employer], Society for Maternal- Medicine, CDC and multiple medical associations strongly recommend the COVID-19 vaccine for women who are in any trimester, those attempting to become , women who have recently delivered, who are lactating as well as any other woman, regardless of age or PRACTICE MANAGEMENT CONSULTANT disorder. The only exceptions to receiving the vaccine are for those who have a contraindication or allergy to the vaccine or any component of the vaccine or with sincerely held gnosticism convictions. The CDC and ACOG encourages a COVID-19 vaccine booster for women, given the risk of severe complications from COVID-19 in . Estimated Date of Delivery Comme nts Yes 12/09/2023 Based on last me nstrual period of 03/04/2023 (Exact Date) documented as of this encounter (statuses as of 11/26/2023) Resolved Problems Problem Noted Date Diagnosed Date Resolved Date Supervision of high risk pre gnancy in first trimester 05/08/2023 05/30/2023 with 9 completed weeks gestation 05/08/2023 05/24/2023 COVID-19 affecting , antepartum 10/28/2021 05/01/2023 Overview: dx'd 10/19 Supervision of normal first 07/04/2021 03/30/2022 Overview: Received covid vax x2 and booster documented as of this encounter (statuses as of 11/26/2023) Immunizations Name Administration Dates Next Due COVID-19 mRNA, LNP-s, No Pre serve, 2-Dose Series ([employer]) 08/27/2020,08/06/2020 Seasonal Influenza, PF, 6 M & [...] money to get more. Never true 05/01/2023 [place] Depression Scale Answer Date Recorded [place] Depression Scale Total 4 2023 The thought of harming myself has occurred to me . Never 2023 Childcare Answer Date Recorded Do you feel overwhelmed with taking care of a child, family member or friend? No 05/01/2023 Does your family need help f inding childcare? (Household - for ages 0-17 years) Not on file 05/01/2023 Clothing Answer Date Recorded Have you been unable to get clothing when it was really needed? No 05/01/2023 Is your family able to get c lothes or diapers when needed? (Household - for ages 0-17 years) Not on file 05/01/2023 Personal Safety Answer Date Recorded Do you feel unsafe or have concerns for your saf ety? No 05/01/2023 Do you have concerns for you r family's safety? (Household - for ages 0-17 years) Not on file 05/01/2023 Utilities Answer Date Recorded Do you have trouble paying y our heating, water, or electric bill? No 05/01/2023 Is your family able to pay t he heat, water, or electric bill? (Household - for ages 0-17 years) Not on file 05/01/2023 Does your family have access to good internet? (Household - for ages 0-17 years) Not on file 05/01/2023 Employment Status Answer Date Recorded Are you unemployed or without regular income? No 05/01/2023 Does the household have a re gular source of income? (Household - for ages 0-17 years) Not on file 05/01/2023 Social Connections Answer Date Recorded How often do you feel lonely or isolated from th ose around you? Never 05/01/2023 Financial Resource Strain Answer Date R ecorded Do you have any trouble payi ng for your medications, or do you think you might in the future? No 05/01/2023 Does your family have troubl e paying for medicine? (Household - for ages 0-17 years) Not on file 05/01/2023 Transportation Needs Answer Date Record ed READ ONLY Do you have troubl e getting a ride to medical visits or work? Never True 05/01/2023 Does your family have a hard time getting a ride to doctors visits? (Household - for ages 0-17 years) Not on file 05/01/2023 Has lack of transportation k ept you from medical appointments, meetings, work, or from getting things needed for daily living? Check all that apply. (Adult - for ages 18 years and over) Not on file 05/01/2023 Do you (or your family) have trouble finding or paying for a ride (transportation)? (Household - for ages 0-17 years) Not on file 05/01/2023 Housing Stability Answer Date Recorded Do you currently live in a s helter or have no steady place to sleep at night? No 05/01/2023 READ ONLY Do you think you a re at risk of becoming homeless? No 05/01/2023 Does your family worry about paying for your home or becoming homeless? (Household - for ages 0-17 years) Not on file 1 07/02/2022 Are you homeless or worried that you might be in the future? (Adult - for ages 18 years and over) Not on file Are you (or your family) diego eless or worried that you might be in the future? (Household - for ages 0-17 years) Not on file Food Insecurity Answer Date Recorded Do you need food for this week? No 05/01/2023 Are you able to get enough f ood for your family? (Household - for ages 0-17 years) Not on file 05/01/2023 Does your family need food t his week? (Household - for ages 0-17 years) Not on file 05/01/2023 Do you always have enough fo od for your family? (Household - for ages 0-17 years) Not on file 05/01/2023 Estimated Date of Delivery Comme nts Yes [...] Sign Reading Time Taken Comments Blood Pressure 114/66 11/26/2023 10:33 AM EDT Pulse - - Temperature - - Respiratory Rate - - Oxygen Saturation - - Inhaled Oxygen Concentration - - Weight 117.9 kg (260 lb) 11/26/2023 10:33 AM EDT Height - - Body Mass Index 37.31 10/19/2023 11:18 AM EDT documented in this encounter Progress Notes * Jacklyn Mclaughlin CRNP - 11/26/2023 10:40 AM EDT 38w1d Feels well. No regular ctx, leaking/bleeding. Baby is active. Requests 39+ week induction - aware this is considered elective as there is no current medical indication, and there is the risk of beingbumped for a more urgent induction. Scheduled per nursing. Return in 1 week. PATI Chand documented in this encounter Plan of Treatment Upcoming Encounters Date Type Department Care Team (Late st Contact Info) Description 12/04/2023 11:00 AM EDT Office Visit Gynecology/Obstetrics [facility] [address] [place] [address] Patti Marques CRNP [address] [place] [address] 04/29/2024 3:20 PM EST Office Visit Endocrinology [address] [place] [phone] Stephanie Manley MD [address] [facility] [place] [address] Health Maintenance Due Date Last Done Comments Hepatitis B (1 of 3 - 19+ 3-dose series) 09/22/2007 COVID-19 Vaccine (2022- season) 2023 08/27/2020, 08/06/2020 Influenza Vaccine (FLU shot) (#1) 2024 02/09/2022, 07/04/2021 Depression Screening 09/20/2024 2023 TSH 09/20/2024 2023, 08/27, 08/23/2023, Additional history exists Diabetes Screening 11/17/2025 [...] or the puerperium, antepartum condition or complication documented in this encounter Additional Health Concerns Infection Onset Date Last Indicated Resolved Time COVID-19 (confirmed) 10/18/2021 10/18/2021 documented as of this encounter Care Teams Special Effects Artist Relationship Specialty Start Date End Date Terri Iniguez MD [address] [place] [address] PCP - General Family Medicine 03/27/22 documented as of this encounter
--- OUTSIDE RECORDS SUMMARY | 2023-12-05 19:56 | External Medical Summary | Summary of Care ---
Author Name Unknown Organization [facility] Address [address] [facility] [place] [address] Phone [phone] Care Team Providers Care Instantizer Operator Name Role Phone Terri Iniguez MD Primary Care Provid er Reason for Visit * Reason Comments Return Visit Encounter Details Date Type Department Care Team (Late st Contact Info) Description 10/02/2023 8:00 AM EDT Office Visit Gynecology/Obstetric s Ev Devries [address] [place] [address] Patti Marques CRNP [address] [place] [address] Multigravida of advanced maternal age in third trimester*; Hypothyroidism affecting in third trimester; Normal in third trimester; Obesity in , antepartum; Uterine size date discrepancy Allergies Active Allergy Reactions Criticality Noted Date Comments Cephalosporins Rash 02/12/2010 documented as of this encounter (statuses as of 10/02/2023) Medications Medication Sig Dispensed Refills Start Date End Date Status Formula 28-0.8-235 MG Oral Capsule Take by mouth. 0 Active Ondansetron 4 MG Oral Tablet Disintegrating (Zofran)Indications:N ausea and vomiting during Place 1 Tablet on tongue every 8 hours as needed for Nausea. dissolve on tongue. 30 Tablet 1 05/30/2023 Active Levothyroxine Sodium 112 MCG Oral Tablet (Levoxyl)Indications: Family history of Dinh thyroiditis,Hypothyro idism, unspecified type 1 tab Sunday to Sunday and 2 tabs on sundays(at least 30 min prior to breakfast or other meds) 100 Tablet 3 07/18/2023 Active documented as of this encounter (statuses as of 10/02/2023) Active Problems Problem Noted Date Diagnosed Date [...] information was shared with the patient. The [employer], Society for Maternal- Medicine, CDC and multiple medical associations strongly recommend the COVID-19 vaccine for women who are in any trimester, those attempting to become , women who have recently delivered, who are lactating as well as any other woman, regardless of age or STUDENT DEAN disorder. The only exceptions to receiving the vaccine are for those who have a contraindication or allergy to the vaccine or any component of the vaccine or with sincerely held adventism convictions. The CDC and ACOG encourages a COVID-19 vaccine booster for women, given the risk of severe complications from COVID-19 in . Estimated Date of Delivery Comme nts Yes 12/09/2023 Based on last me nstrual period of 03/04/2023 (Exact Date) documented as of this encounter (statuses as of 10/02/2023) Resolved Problems Problem Noted Date Diagnosed Date Resolved Date Supervision of high risk pre gnancy in first trimester 05/08/2023 05/30/2023 with 9 completed weeks gestation 05/08/2023 05/24/2023 COVID-19 affecting , antepartum 10/28/2021 05/01/2023 Overview: dx'd 10/19 Supervision of normal first 07/04/2021 03/30/2022 Overview: Received covid vax x2 and booster documented as of this encounter (statuses as of 10/02/2023) Immunizations Name Administration Dates Next Due COVID-19 [...] money to get more. Never true 05/01/2023 [place] Depression Scale Answer Date Recorded [place] Depression Scale Total 4 2023 The thought [...] Sign Reading Time Taken Comments Blood Pressure 90/64 10/02/2023 7:53 AM EDT Pulse - - Temperature - - Respiratory Rate - - Oxygen Saturation - - Inhaled Oxygen Concentration - - Weight 113.9 kg (251 lb) 10/02/2023 7:53 AM EDT Height 177.8 cm (5' 10") 10/02/2023 7:53 AM EDT Body Mass Index 36.01 10/02/2023 7:53 AM EDT documented in this encounter Progress Notes * Patti Marques CRNP - 10/02/2023 8:10 AM EDT 30w2d No concerns. Baby is active. Denies contractions, bleeding, LOF. Size>dates, growth u/s ordered. PATI Ocampo documented in this encounter Nursing Notes * Amy Bajwa LPN - 10/02/2023 7:57 AM EDT 30w2d Denies concerns. documented in this encounter Plan of Treatment Upcoming Encounters Date Type Department Care Team (Late st Contact Info) Description 10/19/2023 10:15 AM EDT Imaging Radiology [facility] [address] [facility] [place] [address] 10/19/2023 11:30 AM EDT Office Visit [facility]necology/[facility]stetrics [facility] [place] [address] Loree Rodriguez PA-C [address] [place] [address] 04/29/2024 3:20 PM EST Office Visit Endocrinology, [place] [address] [place], [place] [phone] Stephanie Manley MD [address] [place], [place] [phone] Scheduled Orders Name Type Priority Associated Diagnoses Orde r Schedule US PREG FOLLOW-UP EACH FETUS Medical Imaging Routine Uterine size date discrepancy Expected: 10/16/2023 (Approximate), Expires: 11/01/2024 Health Maintenance Due Date Last Done Comments [...] as of this encounter Visit Diagnoses Diagnosis Multigravida of advanced maternal age in third trimester- Primary Hypothyroidism affecting in third trimester Normal in third trimester Obesity in , antepartum Obesity complicating , childbirth, or the puerperium, antepartum condition or complication Uterine size date discrepancy Uterine size date discrepancy, antepartum condition or complication documented in this encounter Additional Health Concerns Infection Onset Date Last Indicated Resolved Time COVID-19 (confirmed) 10/18/2021 10/18/2021 documented as of this encounter Care Teams Instantizer Operator Relationship Specialty Start Date End Date Terri Iniguez MD [address] [place] [address] PCP - General Family Medicine 03/27/22 documented as of this encounter
--- OUTSIDE RECORDS SUMMARY | 2023-12-05 19:56 | External Medical Summary | Summary of Care ---
Author Name Unknown Organization [facility] Address [address] [facility] [place] [address] Phone [phone] Care Team Providers Care Audit Specialist Name Role Phone Terri Iniguez MD Primary Care Provid er Reason for Visit * Reason Comments Return Visit Encounter Details Date Type Department Care Team (Late st Contact Info) Description 11/15/2023 8:15 AM EDT Office Visit Gynecology/Obstetric s Ev Devries [address] [place] [address] Jacklyn Mclaughlin CRNP [address] [place] [address] Normal in third trimester*; Hypothyroidism affecting in third trimester; Multigravida of advanced maternal age in third trimester; Obesity in , antepartum Allergies Active Allergy Reactions Criticality Noted Date Comments Cephalosporins Rash 02/12/2010 documented as of this encounter (statuses as of 11/15/2023) Medications Medication Sig Dispensed Refills Start Date End Date Status Formula 28-0.8-235 MG Oral Capsule Take by mouth. Active Levothyroxine Sodium 112 MCG Oral Tablet (Levoxyl)Indications :Family history of Dinh thyroiditis,Hypothyr oidism, unspecified type 1 tab Sunday to Sunday and 2 tabs on sundays(at least 30 min prior to breakfast or other meds) 100 Tablet 3 07/18/2023 Active Ondansetron 4 MG Oral Tablet Disintegrating (Zofran)Indications: Nausea and vomiting during Place 1 Tablet on tongue every 8 hours as needed for Nausea. dissolve on tongue. 30 Tablet 1 05/30/2023 4 Discontinue d(Medicatio n List Clean Up) documented as of this encounter (statuses as of 11/15/2023) Active Problems Problem Noted Date Diagnosed Date [...] information was shared with the patient. The [employer]ne[employer], Society for Maternal- Medicine, CDC and multiple medical associations strongly recommend the COVID-19 vaccine for women who are in any trimester, those attempting to become , women who have recently delivered, who are lactating as well as any other woman, regardless of age or STEEL HANDLER disorder. The only exceptions to receiving the vaccine are for those who have a contraindication or allergy to the vaccine or any component of the vaccine or with sincerely held confucianist convictions. The CDC and ACOG encourages a COVID-19 vaccine booster for women, given the risk of severe complications from COVID-19 in . Estimated Date of Delivery Comme nts Yes 12/09/2023 Based on last me nstrual period of 03/04/2023 (Exact Date) documented as of this encounter (statuses as of 11/15/2023) Resolved Problems Problem Noted Date Diagnosed Date Resolved Date Supervision of high risk pre gnancy in first trimester 05/08/2023 05/30/2023 with 9 completed weeks gestation 05/08/2023 05/24/2023 COVID-19 affecting , antepartum 10/28/2021 05/01/2023 Overview: dx'd 10/19 Supervision of normal first 07/04/2021 03/30/2022 Overview: Received covid vax x2 and booster documented as of this encounter (statuses as of 11/15/2023) Immunizations Name Administration Dates Next Due COVID-19 mRNA, LNP-s, No Pre serve, 2-Dose Series ([employer]) 08/27/2020,08/06/2020 Seasonal Influenza, PF, 6 M & [...] money to get more. Never true 05/01/2023 [place] Depression Scale Answer Date Recorded [place] Depression Scale Total 4 2023 The thought [...] Sign Reading Time Taken Comments Blood Pressure 104/62 11/15/2023 8:12 AM EDT Pulse - - Temperature - - Respiratory Rate - - Oxygen Saturation - - Inhaled Oxygen Concentration - - Weight 116.1 kg (256 lb) 11/15/2023 8:12 AM EDT Height - - Body Mass Index 36.73 10/19/2023 11:18 AM EDT documented in this encounter Progress Notes * Jacklyn Mclaughlin CRNP - 11/15/2023 8:15 AM EDT 36w4d Good movement. No regular ctx, leaking/bleeding. Planning condoms/NFP . FMLA paperwork done. GBS today. Return in 1 week. [employer] Documentation Provider requested property insurance inspector. Name of property insurance inspector: PATI Cannon documented in this encounter Plan of Treatment Upcoming Encounters Date Type Department Care Team (Late st Contact Info) Description 11/22/2023 1:30 PM EDT Office Visit Gynecology/Obstetrics [facility] [address] [facility] [place] [address] Patti Marques CRNP [address] [place] [address] 04/29/2024 3:20 PM EST Office Visit Endocrinology [address] [place] [phone] Stephanie Manley MD [address] [facility] [place] [address] Pending Results Name Type Priority Associated Diagnoses Date /Time GROUP B STREP CULTURE/PCR Lab Routine Normal in third trimester 11/15/2023 8:23 AM EDT Health Maintenance Due Date Last Done Comments Hepatitis B (1 of 3 - 19+ 3-dose series) 09/22/2007 COVID-19 Vaccine (3 season) 2023 08/27/2020, 08/06/2020 Influenza Vaccine (FLU [...] documented as of this encounter Care Teams Audit Specialist Relationship Specialty Start Date End Date Terri Iniguez MD [address] [place] [facility] [place] [address] PCP - General Family Medicine 03/27/22 documented as of this encounter
--- OUTSIDE RECORDS SUMMARY | 2023-12-05 19:56 | External Medical Summary | Summary of Care ---
Author Name Unknown Organization [facility] Address [address] [place] [address] Phone [phone] Care Team Providers Care Market Investigator Name Role Phone Terri Iniguez MD Primary Care Provid er Reason for Visit * Evaluate & Treat - Unlimited Visits (Within 3 days (urgent)) - Pending Review Specialty Diagnoses / Procedures Referred By Contshannen t Referred To Contact Obstetrics/Gynecology / Maternal Medicine Diagnoses Abnormal ultrasound Loree Rodriguez PA-C [address] [place] [address] Referral ID Status Reason Start Date Expiration Date Visits Requested Visits Authorized [id number] Pending Review Specialty Services Required 10/19/[phone] Encounter Details Date Type Department Care Team (Late st Contact Info) Description 10/31/2023 10:15 AM EDT Office Visit Florist Manager Obstetrics Maternal Medicine, [place] [address] [place], [place] [phone] Felipe Breaux MD [address] [place], [place] [phone] Multigravida of advanced maternal age in third trimester*; Hypothyroidism affecting in third trimester Allergies Active Allergy Reactions Criticality Noted Date Comments Cephalosporins Rash 02/12/2010 documented as of this encounter (statuses as of 10/31/2023) Medications Medication Sig Dispensed Refills Start Date [...] as of this encounter (statuses as of 10/31/2023) Active Problems Problem Noted Date Diagnosed Date [...] Lab Results Component Value Date/Time TSH - RODRIER 1.06 04/23/2023 01:02 PM Last Assessment & [...] information was shared with the patient. The [employer], Society for Maternal- Medicine, CDC and multiple medical associations strongly recommend the COVID-19 vaccine for women who are in any trimester, those attempting to become , women who have recently delivered, who are lactating as well as any other woman, regardless of age or CIVIL STRUCTURAL DESIGNER disorder. The only exceptions to receiving the vaccine are for those who have a contraindication or allergy to the vaccine or any component of the vaccine or with sincerely held zoroastrian convictions. The CDC and ACOG encourages a COVID-19 vaccine booster for women, given the risk of severe complications from COVID-19 in . Estimated Date of Delivery Comme nts Yes 12/09/2023 Based on last me nstrual period of 03/04/2023 (Exact Date) documented as of this encounter (statuses as of 10/31/2023) Resolved Problems Problem Noted Date Diagnosed Date Resolved Date Supervision of high risk pre gnancy in first trimester 05/08/2023 05/30/2023 with 9 completed weeks gestation 05/08/2023 05/24/2023 COVID-19 affecting , antepartum 10/28/2021 05/01/2023 Overview: dx'd 10/19 Supervision of normal first 07/04/2021 03/30/2022 Overview: Received covid vax x2 and booster documented as of this encounter (statuses as of 10/31/2023) Immunizations Name Administration Dates Next Due COVID-19 mRNA, LNP-s, No Pre serve, 2-Dose Series ([employer]) 08/27/2020,08/06/2020 Seasonal Influenza, PF, 6 M & [...] money to get more. Never true 05/01/2023 [place] Depression Scale Answer Date Recorded [place] Depression Scale Total 4 2023 The thought [...] on file documented as of this encounter Progress Notes * Felipe Breaux MD - 10/31/2023 10:01 AM EDT MATERNAL MEDICINE VISIT Ekaterina Abraham is at 34w3d who presents to [facility] for an ultrasound and follow-up of her high risk . The patient is currently 34 weeks and 3 days gestation comes in for an evaluation of growth. She had an outside ultrasound that showed an enlarged biparietal diameter. She is being seen today by Maternal- Medicine for the following reasons: Problem List Items Addressed This Visit Hypothyroidism affecting AMA (advanced maternal age) multigravida 35+ - Primary I reviewed the ultrasound with her. The [...] there is no clinical indication for return. We reviewed today's ultrasound findings. (For full report, please refer to ultrasound report provided separately). Ms. Abarham's questions were answered to her satisfaction. Ms. Abraham was instructed to notify her primary hand meat salter if she felt regular contractions (approximately every 10 mins), leaking of fluid, vaginal bleeding or if movement decreased. Thank you for allowing us to participate in the care of this patient. Please call with any questions. Felipe Breaux MD 10/31/2023 10:01 AM documented in this encounter Miscellaneous Notes * Assessment & Plan Note - Felipe Breaux MD - 10/31/2023 10:30 AM EDT Associated Problem(s): AMA (advanced maternal age) multigravida 35+ I reviewed the ultrasound with her. The [...] there is no clinical indication for return. documented in this encounter Plan of Treatment Upcoming Encounters Date Type Department Care Team (Late st Contact Info) Description 11/15/2023 8:15 AM EDT Office Visit Gynecology/Obstetrics Ev Devries [address] [place] [address] RohanerJacklyn CRNP [address] [place] [address] 04/29/2024 3:20 PM EST Office Visit Endocrinology, [place] [address] [place] [address] Stephanie Manley MD [address] [place], [place] [phone] Scheduled Referrals Name Type Priority Associated Diagnoses Orde r Schedule MATERNAL MEDICINE REFERRAL OP Referral Within 3 days (urgent) Abnormal ultrasound Ordered: 10/19/2023 Health Maintenance Due Date Last Done Comments Hepatitis B (1 of 3 - 19+ 3-dose series) 09/22/2007 COVID-19 Vaccine (3 - 2022- season) 2023 08/27/2020, 08/06/2020 Influenza Vaccine (FLU [...] trimester- Primary Hypothyroidism affecting in third trimester documented in this encounter Additional Health Concerns Infection Onset Date Last Indicated Resolved Time COVID-19 (confirmed) 10/18/2021 10/18/2021 documented as of this encounter Care Teams Market Investigator Relationship Specialty Start Date End Date Terri Iniguez MD [address] [place] [address] PCP - General Family Medicine 03/27/22 documented as of this encounter
--- OUTSIDE RECORDS SUMMARY | 2023-12-05 19:56 | External Medical Summary | Summary of Care ---
Author Name Unknown Organization [facility] Address [address] [place] [address] Phone [phone] Care Team Providers Care Fly Frame Tender Name Role Phone Terri Iniguez MD Primary Care Provid er Reason for Visit * Reason Comments Cough Encounter Details Date Type Department Care Team (Late st Contact Info) Description 10/11/2023 11:40 AM EDT Office Visit Family Practice [facility] [address] [place] [address] [facility]ukes [facility] [address] Vir[facility] with cough* Allergies Active Allergy Reactions Criticality Noted Date Comments Cephalosporins Rash 02/12/2010 documented as of this encounter (statuses as of 10/25/2023) Medications Medication Sig Dispensed Refills Start Date [...] as of this encounter (statuses as of 10/25/2023) Active Problems Problem Noted Date Diagnosed Date [...] information was shared with the patient. The [employer]st[employer]s [employer] Gyne[employer], Society for Maternal- Medicine, CDC and multiple medical associations strongly recommend the COVID-19 vaccine for women who are in any trimester, those attempting to become , women who have recently delivered, who are lactating as well as any other woman, regardless of age or UNDERWRITING SUPPORT MANAGER disorder. The only exceptions to receiving the vaccine are for those who have a contraindication or allergy to the vaccine or any component of the vaccine or with sincerely held pentecostalism convictions. The CDC and ACOG encourages a COVID-19 vaccine booster for women, given the risk of severe complications from COVID-19 in . Estimated Date of Delivery Comme nts Yes 12/09/2023 Based on last me nstrual period of 03/04/2023 (Exact Date) documented as of this encounter (statuses as of 10/25/2023) Resolved Problems Problem Noted Date Diagnosed Date Resolved Date Supervision of high risk pre gnancy in first trimester 05/08/2023 05/30/2023 with 9 completed weeks gestation 05/08/2023 05/24/2023 COVID-19 affecting , antepartum 10/28/2021 05/01/2023 Overview: dx'd 10/19 Supervision of normal first 07/04/2021 03/30/2022 Overview: Received covid vax x2 and booster documented as of this encounter (statuses as of 10/25/2023) Immunizations Name Administration Dates Next Due COVID-19 mRNA, LNP-s, No Pre serve, 2-Dose Series ([employer])) 08/27/2020,08/06/2020 Seasonal Influenza, PF, 6 M & [...] money to get more. Never true 05/01/2023 [place] Depression Scale Answer Date Recorded [place] Depression Scale Total 4 2023 The thought [...] Sign Reading Time Taken Comments Blood Pressure 116/62 10/11/2023 11:49 AM EDT Pulse 90 10/11/2023 11:49 AM EDT Temperature 36.5 C (97.7 F) 10/11/2023 11:49 AM E DT Respiratory Rate 20 10/11/2023 11:49 AM EDT Oxygen Saturation 99% 10/11/2023 11:49 AM EDT Inhaled Oxygen Concentration - - Weight 112.5 kg (248 lb) 10/11/2023 11:49 AM EDT Height - - Body Mass Index 35.58 10/02/2023 7:53 AM EDT documented in this encounter Progress Notes * Dianna Dukes, - 10/11/2023 11:58 AM EDT Subjective: Ekaterina Abraham is a 33 year old female. Chief Complaint Patient presents with Cough HPI: Patient reports cough that she can't seem to get rid of. Had some SOB this morning. She says it started about 4 days ago. No fevers, chills, nausea, vomiting, diarrhea, constipation, abdominal pain, or lethargy. PHM: Patient Active Problem List Diagnosis Hypothyroid Hypothyroidism affecting COVID-19 vaccine series completed Normal AMA (advanced maternal age) multigravida 35+ Obesity in , antepartum Current Outpatient Medications Medication Sig Dispense Refill Levothyroxine Sodium 112 MCG Oral Tablet (Levoxyl) 1 tab Sunday to Sunday and 2 tabs on sundays(at least 30 min prior to breakfast or other meds) 100 Tablet 3 Ondansetron 4 MG Oral Tablet Disintegrating (Zofran) Place 1 Tablet on tongue every 8 hours as needed for Nausea. dissolve on tongue. (Patient not taking: Reported on 10/19/2023) 30 Tablet 1 Formula 28-0.8-235 MG Oral Capsule Take by mouth. No current facility-administered medications for this visit. Review of patient's allergies indicates: Allergen Reactions Penicillin [Cephalosporins] Rash Objective: BP 116/62 | Pulse 90 | Temp 36.5 C (97.7 F) (Tympanic) | Resp 20 | Wt 112.5 kg (248 lb) | LMP 03/04/2023 (Exact Date) | SpO2 99% | BMI 35.58 kg/m | BSA 2.36 m Physical Exam: General: alert, healthy, no distress, well nourished and well developed Head: Normocephalic, No masses, lesions, tenderness or abnormalities Eye Exam: PERRLA, EOMI, Conjunctiva are pink and non-injected, fundi benign, sclera clear Ears: External ears normal, Canals clear, R TM air and or fluid interface, L TM air and or fluid interface Nose: clear rhinorrhea, mucosal edema, mucosal erythema, pale mucosa, no sinus tenderness Oropharynx: no exudate, no erythema and lips, buccal mucosa, and tongue normal Neck: supple, no adenopathy, no bruits, thyroid normal size, non-tender, without nodularity Lymph: no palpable lymphadenopathy Heart: regular rate & rhythm, no murmurs and no gallops Lungs: clear to auscultation ASSESSMENT/PLAN: Viral URI with cough (Primary) supportive care, fluids, rest, precautions, salt water gargles, tylenol or NSAIDS as needed Call or go to ED with concerns for dehydration, lethargy, respiratory distress. 20 min spent with patient, reviewing history, performing physical exam, reviewing labs, studies, specialist OVNs, and reports, educating and coordinating care, discussing treatment, and completing note Dianna Dukes DO documented in this encounter Nursing Notes * Ainsley Mills LPN - 10/11/2023 11:48 AM EDT Patient reports cough that she can't seem to get rid of. Had some SOB this morning. She says it started about 4 days ago. documented in this encounter Plan of Treatment Upcoming Encounters Date Type Department Care Team (Late st Contact Info) Description 10/31/2023 10:15 AM EDT Office Visit Ecologist Obstetrics Maternal Medicine, [place] [address] [place] [address] Felipe Breaux MD [address] [place] [address] 10/31/2023 10:15 AM EDT Imaging Radiology [facility] [place] [address] [place] [address] 11/06/2023 11:45 AM EDT Office Visit Gynecology/Obstetrics [facility] [place] [address] [facility] [place] [address] Jacklyn Mclaughlin CRNP [address] [address] 04/29/2024 3:20 PM EST Office Visit Endocrinology, [place] [address] [place] [address] Stephanie Manley MD [address] [place] [address] Health Maintenance Due Date Last Done Comments Hepatitis B (1 of 3 - 19+ 3-dose series) 09/22/2007 COVID-19 Vaccine ( season) 2023 08/27/2020, 08/06/2020 Influenza Vaccine (FLU [...] as of this encounter Visit Diagnoses Diagnosis Viral URI with cough- Primary Acute upper respiratory infections of unspecified site documented in this encounter Additional Health Concerns Infection Onset Date Last Indicated Resolved Time COVID-19 (confirmed) 10/18/2021 10/18/2021 documented as of this encounter Care Teams Fly Frame Tender Relationship Specialty Start Date End Date Terri Iniguez MD [address] [place] [facility] [place] [address] PCP - General Family Medicine 03/27/22 documented as of this encounter"
--- OUTSIDE RECORDS SUMMARY | 2023-12-05 19:56 | External Medical Summary | Summary of Care ---
Author Name Unknown Organization [facility] Address [address] [place] [address] Phone [phone] Care Team Providers Care Body Press Operator Name Role Phone Terri Iniguez MD Primary Care Provid er Reason for Visit * Reason Comments Outpatient Testing Encounter Details Date Type Department Care Team (Late st Contact Info) Description 2023 8:30 AM EDT Laboratory Laboratory, [facility] [address] [place] [address] [facility] [address] [place] [address] Family history of Dinh thyroiditis; Hypothyroidism, unspecified type; Normal in third trimester Allergies Active Allergy Reactions Criticality Noted Date Comments Cephalosporins Rash 02/12/2010 documented as of this encounter (statuses as of 2023) Medications Medication Sig Dispensed Refills Start Date [...] as of this encounter (statuses as of 2023) Active Problems Problem Noted Date Diagnosed Date [...] information was shared with the patient. The [employer], Society for Maternal- Medicine, CDC and multiple medical associations strongly recommend the COVID-19 vaccine for women who are in any trimester, those attempting to become , women who have recently delivered, who are lactating as well as any other woman, regardless of age or RN RENAL disorder. The only exceptions to receiving the vaccine are for those who have a contraindication or allergy to the vaccine or any component of the vaccine or with sincerely held islam convictions. The CDC and ACOG encourages a COVID-19 vaccine booster for women, given the risk of severe complications from COVID-19 in . Estimated Date of Delivery Comme nts Yes 12/09/2023 Based on last me nstrual period of 03/04/2023 (Exact Date) documented as of this encounter (statuses as of 2023) Resolved Problems Problem Noted Date Diagnosed Date Resolved Date Supervision of high risk pre gnancy in first trimester 05/08/2023 05/30/2023 with 9 completed weeks gestation 05/08/2023 05/24/2023 COVID-19 affecting , antepartum 10/28/2021 05/01/2023 Overview: dx'd 10/19 Supervision of normal first 07/04/2021 03/30/2022 Overview: Received covid vax x2 and booster documented as of this encounter (statuses as of 2023) Immunizations Name Administration Dates Next Due COVID-19 mRNA, LNP-s, No Pre serve, 2-Dose Series ([employer]) 08/27/2020,08/06/2020 Seasonal Influenza, PF, 6 M & [...] money to get more. Never true 05/01/2023 [place] Depression Scale Answer Date Recorded [place] Depression Scale Total 4 2023 The thought [...] on file documented as of this encounter Plan of Treatment Upcoming Encounters Date Type Department Care Team (Late st Contact Info) Description 10/02/2023 8:00 AM EDT [facility] [address] [place] [address] Patti Marques CRNP [address] [place] [address] 04/29/2024 3:20 PM EST Office Visit Endocr[facility]ologyB[place] [address] [facility] [place] [id number] Stephanie Manley MD [address], [place] [id number] Pending Results Name Type Priority Associated Diagnoses Date /Time TSH WITH FREE T4 IF INDICATED Lab Routine Family history of Dinh thyroiditis Hypothyroidism, unspecified type 2023 9:34 AM EDT 50-G GESTATIONAL GLUCOSE, 1 HOUR Lab Routine Normal in third trimester 2023 9:34 AM EDT CBC WITH WBC DIFFERENTIAL AND ANEMIA REFLEX WORKUP Lab Routine Normal in third trimester 2023 9:34 AM EDT SYPHILIS ANTIBODY SCREEN WITH REFLEX TO RPR Lab Routine Normal in third trimester 2023 9:34 AM EDT ANEMIA CBC Lab Routine Normal in third trimester 2023 9:34 AM EDT DIFFERENTIAL, AUTOMATED Lab Routine Normal in third trimester 2023 9:34 AM EDT ANEMIA REFLEX CHEMISTRY HOLD Lab Routine Normal in third trimester 2023 9:34 AM EDT SYPHILIS ANTIBODY SCREEN Lab Routine Normal in third trimester 2023 9:34 AM EDT Health Maintenance Due Date Last Done Comments Hepatitis B (1 of 3 - 19+ 3-dose series) 09/22/2007 COVID-19 Vaccine ( season) 2023 08/27/2020, 08/06/2020 Influenza Vaccine (FLU shot) (Season Ended) 2024 02/09/2022, 07/04/2021 TSH 08/22/2024 08/23/2023, 06/28, 04/23/2023, Additional history exists Depression Screening 09/20/2024 2023 Pap Smear 05/01/2026 05/01/2023, 06/29/2020 Cervical Cancer [...] as of this encounter Visit Diagnoses Diagnosis Family history of Dinh thyroiditis Family history of other endocrine and metabolic diseases Hypothyroidism, unspecified type Normal in third trimester documented in this encounter Additional Health Concerns Infection Onset Date Last Indicated Resolved Time COVID-19 (confirmed) 10/18/2021 10/18/2021 documented as of this encounter Care Teams Body Press Operator Relationship Specialty Start Date End Date Terri Iniguez MD [address] [place] [address] PCP - General Family Medicine 03/27/22 documented as of this encounter
--- OUTSIDE RECORDS SUMMARY | 2023-12-05 19:56 | External Medical Summary ---
Author Name Unknown Address Unknown Organization [id number]:[facility] [place] [address] [place] [address] Laboratory Report Ordering Provider Test Date Status YU CHE 11/15/2023 08:23:59 Final Observation Date Value Abnormality Reference (Units ) Status Streptococcus agalactiae DNA [Presence] in Specimen by NEVIN with probe detection 11/15/2023 08:23:59 Negative Negative Final No Group B Streptococcus det ected by culture-enhanced PCR (amplified probe). GBS GBSCT - [facility] 11/15/2023 08:23:59 0.0 Final GBS SPCCT - [facility] 11/15/2023 08:23:59 31.0 Final Performing Location [facility] [place] [facility] [address] [place] [address]
--- OUTSIDE RECORDS SUMMARY | 2023-12-05 19:56 | External Medical Summary | Summary of Care ---
Author Name Unknown Organization [facility] Address [address] [facility] [place] [address] Phone [phone] Care Team Providers Care Cash Processor Name Role Phone Terri Iniguez MD Primary Care Provid er Reason for Visit * Reason Comments Return Visit Encounter Details Date Type Department Care Team (Late st Contact Info) Description 12/04/2023 11:00 AM EDT Office Visit Gynecology/Obstetric s [facility] [address] [place] [address] Patti Marques CRNP [address] [place] [address] Multigravida of advanced maternal age in third trimester*; Hypothyroidism affecting in third trimester; Normal in third trimester; Obesity in , antepartum Allergies Active Allergy Reactions Criticality Noted Date Comments Cephalosporins Rash 02/12/2010 documented as of this encounter (statuses as of 12/04/2023) Medications Medication Sig Dispensed Refills Start Date [...] as of this encounter (statuses as of 12/04/2023) Active Problems Problem Noted Date Diagnosed Date [...] information was shared with the patient. The [place] [employer], Society for Maternal- Medicine, CDC and multiple medical associations strongly recommend the COVID-19 vaccine for women who are in any trimester, those attempting to become , women who have recently delivered, who are lactating as well as any other woman, regardless of age or TOOLS DEVELOPER disorder. The only exceptions to receiving the [...] as of this encounter (statuses as of 12/04/2023) Resolved Problems Problem Noted Date Diagnosed Date Resolved Date Supervision of high risk pre gnancy in first trimester 05/08/2023 05/30/2023 with 9 completed weeks gestation 05/08/2023 05/24/2023 COVID-19 affecting , antepartum 10/28/2021 05/01/2023 Overview: dx'd 10/19 Supervision of normal first 07/04/2021 03/30/2022 Overview: Received covid vax x2 and booster documented as of this encounter (statuses as of 12/04/2023) Immunizations Name Administration Dates Next Due COVID-19 mRNA, LNP-s, No Pre serve, 2-Dose Series ([email or web address]) 08/27/2020,08/06/2020 Seasonal Influenza, PF, 6 M & [...] money to get more. Never true 05/01/2023 [place] Depression Scale Answer Date Recorded [place] Depression Scale Total 6 11/26/2023 The thought of harming myself has occurred to me . Never 11/26/2023 Childcare Answer Date Recorded Do you feel [...] Reading Time Taken Comments Blood Pressure 114/66 12/04/2023 10:59 AM EDT Pulse - - Temperature - - Respiratory Rate - - Oxygen Saturation - - Inhaled Oxygen Concentration - - Weight 117 kg (258 lb) 12/04/2023 10:59 AM EDT Height - - Body Mass Index 37.02 10/19/2023 11:18 AM EDT documented in this encounter Progress Notes * Patti Marques CRNP - 12/04/2023 11:22 AM EDT 39w2d Complaints: none Feeling well overall. Good FM. No contractions, bleeding, or LOF. IOL tomorrow. PATI Ocampo * Erika Longoria MED ASSIST - 12/04/2023 10:59 AM EDT 39w2d Denies vaginal bleeding/rom + movements No new concerns documented in this encounter Plan of Treatment Health Maintenance Due Date Last Done Comments Hepatitis B Vaccine (1 of 3 - 19+ 3-dose series) 09/22/2007 COVID-19 Vaccine ( - 2022-24 season) 2023 08/27/2020, 08/06/2020 Influenza Vaccine (FLU shot) (#1) 2024 02/09/2022, 07/04/2021 Depression Screening 09/20/2024 2023 TSH 09/20/2024 2023, 04/10/2023, 08/23/2023, Additional history exists Diabetes Screening 11/17/2025 11/17/2022, 12/23/2021 Pap Smear 05/01/2026 05/01/2023, 06/29/2020 Cervical Cancer Screening 05/01/2028 HPV/Co-Test 05/01/2028 05/01/2023 DTaP,Tdap,and Td Vaccines (3 - Td or Tdap) 09/20/2033 2023, 11/25/2021 HPV (Gardasil) Vaccine Aged Out No lo nger eligible based on patient's age to complete [...] documented as of this encounter Care Teams Cash Processor Relationship Specialty Start Date End Date Terri Iniguez MD [address] [place] [address] PCP - General Family Medicine 03/27/22 documented as of this encounter
--- OUTSIDE RECORDS SUMMARY | 2023-12-05 19:56 | External Medical Summary | Summary of Care ---
Author Name Unknown Organization [facility] Address [address] [place] [place] [address] Phone [phone] Care Team Providers Care Continuous Improvement Facilitator Name Role Phone Terri Iniguez MD Primary Care Provid er Reason for Visit * Reason Comments Return Visit Encounter Details Date Type Department Care Team (Late st Contact Info) Description 11/22/2023 1:30 PM EDT Office Visit Gynecology/Obstetric s [facility] [address] [place] [address] Patti Marques CRNP [address] [place] [address] Multigravida of advanced maternal age in third trimester*; Hypothyroidism affecting in third trimester; Normal in third trimester; Obesity in , antepartum Allergies Active Allergy Reactions Criticality Noted Date Comments Cephalosporins Rash 02/12/2010 documented as of this encounter (statuses as of 11/22/2023) Medications Medication Sig Dispensed Refills Start Date [...] as of this encounter (statuses as of 11/22/2023) Active Problems Problem Noted Date Diagnosed Date [...] information was shared with the patient. The [employer]s [employer] Gyne[employer], Society for Maternal- Medicine, CDC and multiple medical associations strongly recommend the COVID-19 vaccine for women who are in any trimester, those attempting to become , women who have recently delivered, who are lactating as well as any other woman, regardless of age or RN LABOR AND DELIVERY disorder. The only exceptions to receiving the vaccine are for those who have a contraindication or allergy to the vaccine or any component of the vaccine or with sincerely held denominational convictions. The CDC and ACOG encourages a COVID-19 vaccine booster for women, given the risk of severe complications from COVID-19 in . Estimated Date of Delivery Comme nts Yes 12/09/2023 Based on last me nstrual period of 03/04/2023 (Exact Date) documented as of this encounter (statuses as of 11/22/2023) Resolved Problems Problem Noted Date Diagnosed Date Resolved Date Supervision of high risk pre gnancy in first trimester 05/08/2023 05/30/2023 with 9 completed weeks gestation 05/08/2023 05/24/2023 COVID-19 affecting , antepartum 10/28/2021 05/01/2023 Overview: dx'd 10/19 Supervision of normal first 07/04/2021 03/30/2022 Overview: Received covid vax x2 and booster documented as of this encounter (statuses as of 11/22/2023) Immunizations Name Administration Dates Next Due COVID-19 mRNA, LNP-s, No Pre serve, 2-Dose Series ([employer]) 08/27/2020,08/06/2020 Seasonal Influenza, PF, 6 M & [...] money to get more. Never true 05/01/2023 [place] Depression Scale Answer Date Recorded [place] Depression Scale Total 4 2023 The thought [...] Sign Reading Time Taken Comments Blood Pressure 110/66 11/22/2023 1:27 PM EDT Pulse - - Temperature - - Respiratory Rate - - Oxygen Saturation - - Inhaled Oxygen Concentration - - Weight 118.2 kg (260 lb 9.6 oz) 11/22/2023 1:27 PM EDT Height - - Body Mass Index 37.39 10/19/2023 11:18 AM EDT documented in this encounter Progress Notes * Patti Marques CRNP - 11/22/2023 1:45 PM EDT 37w4d Complaints: none Feeling well overall. Good FM. No contractions, bleeding, or LOF. PATI Ocampo * Erika Longoria MED ASSIST - 11/22/2023 1:27 PM EDT 37w4d Denies vaginal bleeding/rom + movements No new concerns documented in this encounter Plan of Treatment Upcoming Encounters Date Type Department Care Team (Late st Contact Info) Description 11/26/2023 10:45 AM EDT Office Visit Gynecology/Obstetrics [facility] [address] [place] [address] Loree Rodriguez PA-C [address] [place] [address] 04/29/2024 3:20 PM EST Office Visit Endocrinology [address] [place] [phone] Stephanie Manley MD [address] [facility] [place] [address] Health Maintenance Due Date [...] documented as of this encounter Care Teams Continuous Improvement Facilitator Relationship Specialty Start Date End Date Terri Iniguez [facility] [address] [facility] [address] PCP - General Family Medicine 03/27/22 documented as of this encounter
--- OUTSIDE RECORDS SUMMARY | 2023-12-05 19:57 | External Medical Summary ---
Author Name Unknown Address Unknown Organization [id number]:[facility] [place] [address] [place] [address] Laboratory Report Ordering Provider Test Date Status NICOLETTE ANDERSON 2023 09:34:20 Final Observation Date Value Abnormality Reference (Units ) Status Glucose [Moles/volume] in Serum or Plasma --1 hour post 50 g glucose PO 2023 09:34:20 123 70-129 (mg/dL) Final Performing Location LABORATORY [facility] [place] [address] - [address] [place] [address]
--- OUTSIDE RECORDS SUMMARY | 2023-12-05 19:57 | External Medical Summary ---
Author Name Unknown Address Unknown Organization [id number]:[facility] [place] [address] [facility] [address] [place] [address] Laboratory Report Ordering Provider Test Date Status NICOLETTE ANDERSON 2023 09:34:20 Final Observation Date Value Abnormality Reference (Units ) Status TSH 2023 09:34:20 2.20 0.27-4.20 (uIU/mL) Final Performing Location LAB[facility]ATORY [facility] - [address] [place] [address]
--- OUTSIDE RECORDS SUMMARY | 2023-12-05 19:57 | External Medical Summary | Summary of Care ---
Author Name Unknown Organization [facility] Address [address] [facility] [place] [address] Phone [phone] Care Team Providers Care Industry Consultant Name Role Phone Terri Iniguez MD Primary Care Provid er Encounter Details Date Type Department Care Team (Late st Contact Info) Description 09/11/2023 Telephone Gynecology/Obstetrics [facility] [address] [place] [id number] Enzo Cohn MD [address] [place] [address] Allergies Active Allergy Reactions Criticality Noted Date Comments Cephalosporins Rash 02/12/2010 documented as of this encounter (statuses as of 09/11/2023) Medications Medication Sig Dispensed Refills Start Date [...] as of this encounter (statuses as of 09/11/2023) Active Problems Problem Noted Date Diagnosed Date [...] Lab Results Component Value Date/Time TSH - [facility] 1.06 04/23/2023 01:02 PM Last Assessment & [...] information was shared with the patient. The [employer] Ob[employer]s [employer] Gyne[employer], Society for Maternal- Medicine, CDC and multiple medical associations strongly recommend the COVID-19 vaccine for women who are in any trimester, those attempting to become , women who have recently delivered, who are lactating as well as any other woman, regardless of age or CABLE INSTALLER REPAIRER disorder. The only exceptions to receiving the vaccine are for those who have a contraindication or allergy to the vaccine or any component of the vaccine or with sincerely held yazdanism convictions. The CDC and ACOG encourages a COVID-19 vaccine booster for women, given the risk of severe complications from COVID-19 in . Estimated Date of Delivery Comme nts Yes 12/09/2023 Based on last me nstrual period of 03/04/2023 (Exact Date) documented as of this encounter (statuses as of 09/11/2023) Resolved Problems Problem Noted Date Diagnosed Date Resolved Date Supervision of high risk pre gnancy in first trimester 05/08/2023 05/30/2023 with 9 completed weeks gestation 05/08/2023 05/24/2023 COVID-19 affecting , antepartum 10/28/2021 05/01/2023 Overview: dx'd 10/19 Supervision of normal first 07/04/2021 03/30/2022 Overview: Received covid vax x2 and booster documented as of this encounter (statuses as of 09/11/2023) Immunizations Name Administration Dates Next Due COVID-19 mRNA, LNP-s, No Pre serve, 2-Dose Series ([employer]) 08/27/2020,08/06/2020 Seasonal Influenza, PF, 6 M & above, IM , (FluLaval or Fluzone) 02/09/2022,07/04/2021 TDAP (age 10 and older)(Boostrix) 11/25/2021 documented as of this encounter Social History [...] drinks on one occasion? Patient declined 06/29/2020 Hunger Vital Sign Answer Date Recorded Within the past 12 months, y ou worried that your food would run out before you got the money to buy more. Never true 05/01/20 23 Within the past 12 months, t he food you bought just didn't last and you didn't have money to get more. Never true 05/01/2023 [place] Depression Scale Answer Date Recorded [place] Depression Scale Total 5 05/01/2023 The thought of harming myself has occurred to me . 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 She would like to know what precautions she should take and what her risks are. Reviewed with Patti and Vern who indicate just standard precautions. If becomes symptomatic let us know and referral to [facility] can be made. Patient notified and agreeable. documented in this encounter Plan of Treatment Upcoming Encounters Date Type Department Care Team (Late st Contact Info) Description 2023 8:30 AM EDT [facility] [address] [place] [phone] [facility] [address] [place] [address] 2023 9:00 AM EDT Office Visit Gynecology/Obstetrics [facility] [address] [place] [address] Loree Rodriguez PA-C [address] [place] [address] 04/29/2024 3:20 PM EST Office Visit Endocrinology, [place] [address] [facility] [place] [address] Stephanie Manley MD [address] [facility] [place] [address] Health Maintenance Due Date Last Done Comments Depression Screening 2000 Hepatitis B (1 of 3 - 19+ 3-dose series) 09/22/2007 COVID-19 Vaccine (3 - 2022- season) 2023 08/27/2020, 08/06/2020 Influenza Vaccine (FLU shot) (Season Ended) 2024 02/09/2022, 07/04/2021 TSH 08/22/2024 08/23/2023, 06/28, 04/23/2023, Additional history exists Pap Smear 05/01/2026 05/01/2023, 06/29/2020 Cervical Cancer Screening 05/01/2028 HPV/Co-Test 05/01/2028 05/01/2023 DTaP,Tdap,and Td Vaccines (2 - Td or Tdap) 11/26/2031 11/25/2021 GARDASIL-HPV IMMUNIZATION SERIES Aged Out No [...] Not on filedocumented as of this encounter Additional Health Concerns Infection Onset Date Last Indicated Resolved Time COVID-19 (confirmed) 10/18/2021 10/18/2021 documented as of this encounter Care Teams Industry Consultant Relationship Specialty Start Date End Date Terri Iniguez MD [address] [facility] [address] PCP - General Family Medicine 03/27/22 documented as of this encounter
--- OUTSIDE RECORDS SUMMARY | 2023-12-05 19:57 | External Medical Summary ---
Author Name Unknown Address Unknown Organization K01:[facility] [place] [address] [place] [address] Laboratory Report Ordering Provider Test Date Status NICOLETTE ANDERSON 2023 09:34:20 Final Observation Date Value Abnormality Reference (Units ) Status SYNC LEUKOCYTES IN BLOOD BY AUTOMATED COUNT 2023 09:34:20 8.88 4.00-10.80 (K/uL) Final Segs 2023 09:34:20 68.9 40.0-75.0 (%) Final Lymphs % 2023 09:34:20 20.3 18.0-42.0 (%) Final Monos 2023 09:34:20 9.5 1.0-11.0 (%) Final Eosinophils 2023 09:34:20 0.5 0.0-6.0 (%) Final Basos 2023 09:34:20 0.3 0.0-2.0 (%) Final Immature Granulocyte, Percent 2023 09:34:20 0.5 0.0-2.0 (%) Final Absolute Segs 2023 09:34:20 6.13 1.80-7.70 (K/uL) Final Lymphs, absolute 2023 09:34:20 1.80 1.00-4.80 (K/ul) Final Monos, Abs 2023 09:34:20 0.84 0.00-1.10 (K/uL) Final Eos, Abs 2023 09:34:20 0.04 0.00-0.70 (K/uL) Final Basos, Abs 2023 09:34:20 0.03 0.00-0.20 (K/uL) Final Immature Granulocytes, Number 2023 09:34:20 0.04 0.00-0.20 (K/uL) Final Performing Location LABORATORY [facility] - [address] [facility] [address]
--- OUTSIDE RECORDS SUMMARY | 2023-12-05 19:57 | External Medical Summary ---
Author Name Unknown Address Unknown Organization [id number]:[facility] [place] [address] [place] [address] Laboratory Report Ordering Provider Test Date Status NICOLETTE ANDERSON 2023 09:34:20 Final Observation Date Value Abnormality Reference (Units ) Status Vitamin B12 2023 09:34:20 [phone] (pg/mL) Final Performing Location [facility] [place] [address] [place] [address]
--- OUTSIDE RECORDS SUMMARY | 2023-12-05 19:57 | External Medical Summary ---
Author Name Unknown Address Unknown Organization [id number]:[facility] [place] - [address] [place] [address] Laboratory Report Ordering Provider Test Date Status DONALDO LANCASTER 07/10/2023 15:32:18 Final Observation Date Value Abnormality Reference (Units ) Status TSH 07/10/2023 15:32:18 2.90 0.27-4.20 (uIU/mL) Final Performing Location LABORATORY C - [address] [place] [address]
--- OUTSIDE RECORDS SUMMARY | 2023-12-05 19:57 | External Medical Summary | Summary of Care ---
Author Name Unknown Organization [facility] Address [address] [facility] [place] [address] Phone [phone] Care Team Providers Care Sterile Process Coordinator Name Role Phone Terri Iniguez MD Primary Care Provid er Reason for Visit * Reason Comments Return Visit Encounter Details Date Type Department Care Team (Late st Contact Info) Description 2023 9:00 AM EDT Office Visit Gynecology/Obstetric s Ev Devries [address] [place] [address] Loree Rodriguez PA-C [address] [place] [address] Normal in third trimester*; Hypothyroidism affecting in [...] information was shared with the patient. The [place] [employer], Society for Maternal- Medicine, CDC and multiple medical associations strongly recommend the COVID-19 vaccine for women who are in any trimester, those attempting to become , women who have recently delivered, who are lactating as well as any other woman, regardless of age or PROGRAM TECHNICIAN disorder. The only exceptions to receiving the vaccine are for those who have a contraindication or allergy to the vaccine or any component of the vaccine or with sincerely held temple convictions. The CDC and ACOG encourages a [...] mRNA, LNP-s, No Pre serve, 2-Dose Series (Adcade) 08/27/2020,08/06/2020 Seasonal Influenza, PF, 6 M & [...] money to get more. Never true 05/01/2023 [place] Depression Scale Answer Date Recorded [place] Depression Scale Total 4 2023 The thought [...] Sign Reading Time Taken Comments Blood Pressure 104/60 2023 8:53 AM EDT Pulse - - Temperature - - Respiratory Rate - - Oxygen Saturation - - Inhaled Oxygen Concentration - - Weight 114.3 kg (252 lb) 2023 8:53 AM EDT Height 177.8 cm (5' 10") 2023 8:53 AM EDT Body Mass Index 36.16 2023 8:53 AM EDT documented in this encounter Progress Notes * Loree Rodriguez PA-C - 2023 9:11 AM EDT 28w5d Completing third tri labs today. Will also repeat TSH, follows with Endocrinology. Counseled on TDaP, accepts vaccine and given. Denies VB, LOF, contractions. Baby is active. RTC in 2 weeks Loree Rodriguez PA-C documented in this encounter Nursing Notes * Amy Bajwa LPN - 2023 9:11 AM EDT Patient here for tdap injection. Patient doing well no complaints. Injection given IM as ordered. Patient tolerated well. Patient to follow up as directed. Patient instructed to call if any complications. Patient verbalized understanding of instructions given and her follow up appt for HUI Injection site: Left Deltoid Medication Source: Dispensed stock medication * Amy Bajwa LPN - 2023 9:01 AM EDT 28w5d Denies concerns Completing labs today Would like tdap. documented in this encounter Plan of Treatment Upcoming Encounters Date Type Department Care Team (Late st Contact Info) Description 10/02/2023 8:00 AM EDT Office Visit Gynecology/Obstetrics [facility] [address] [place] [address] Patti Marques CRNP [address] [place] [id number] 04/29/2024 3:20 PM EST Office Visit Endocrinology, [place] [address] [place] [address] Stephanie Manley MD [address] [place] [address] Health Maintenance Due Date Last Done [...] documented as of this encounter Care Teams Sterile Process Coordinator Relationship Specialty Start Date End Date Terri Iniguez MD [address] [place] [address] PCP - General Family Medicine 03/27/22 documented as of this encounter
--- OUTSIDE RECORDS SUMMARY | 2023-12-05 19:57 | External Medical Summary | Summary of Care ---
Author Name Unknown Organization [facility] Address [address] [place] [address] Phone [phone] Care Team Providers Care Sandblast Carver Name Role Phone Terri Iniguez MD Primary Care Provid er Reason for Visit * Reason Comments Ultrasound * Evaluate & Treat - Unlimited Visits (Within 10 days (routine)) - Pending Review Specialty Diagnoses / Procedures Referred By Arleth t Referred To Contact Obstetrics/Gynecology / Maternal Medicine Diagnoses Hypothyroidism affecting in second trimester Loree Rodriguez PA-C [address] [place] [address] Referral ID Status Reason Start Date Expiration Date Visits Requested Visits Authorized [id number] Pending Review Specialty Services Required 07/27/[phone] Encounter Details Date Type Department Care Team (Late st Contact Info) Description 08/13/2023 2:30 PM EDT Office Visit Drawer Upfitter Obstetrics Maternal Medicine, [place] [address] [place] [address] Jimbo Villagran, [address] [place] [address] Multigravida of advanced maternal age in second trimester*; Hypothyroidism affecting in second trimester; Obesity in , antepartum Allergies Active Allergy Reactions Criticality Noted Date Comments Cephalosporins Rash 02/12/2010 documented as of this encounter (statuses as of 08/13/2023) Medications Medication Sig Dispensed Refills Start Date [...] as of this encounter (statuses as of 08/13/2023) Active Problems Problem Noted Date Diagnosed Date [...] information was shared with the patient. The [place] [employer]ne[employer], Society for Maternal- Medicine, CDC and multiple medical associations strongly recommend the COVID-19 vaccine for women who are in any trimester, those attempting to become , women who have recently delivered, who are lactating as well as any other woman, regardless of age or AIR TRANSPORT PROFESSIONALS disorder. The only exceptions to receiving the vaccine are for those who have a contraindication or allergy to the vaccine or any component of the vaccine or with sincerely held restorationist convictions. The CDC and ACOG encourages a COVID-19 vaccine booster for women, given the risk of severe complications from COVID-19 in . Estimated Date of Delivery Comme nts Yes 12/09/2023 Based on last me nstrual period of 03/04/2023 (Exact Date) documented as of this encounter (statuses as of 08/13/2023) Resolved Problems Problem Noted Date Diagnosed Date Resolved Date Supervision of high risk pre gnancy in first trimester 05/08/2023 05/30/2023 with 9 completed weeks gestation 05/08/2023 05/24/2023 COVID-19 affecting , antepartum 10/28/2021 05/01/2023 Overview: dx'd 10/19 Supervision of normal first 07/04/2021 03/30/2022 Overview: Received covid vax x2 and booster documented as of this encounter (statuses as of 08/13/2023) Immunizations Name Administration Dates Next Due COVID-19 mRNA, LNP-s, No Pre serve, 2-Dose Series (HyperWeek) 08/27/2020,08/06/2020 Seasonal Influenza, PF, 6 M & [...] money to get more. Never true 05/01/2023 [place] Depression Scale Answer Date Recorded [place] Depression Scale Total 5 05/01/2023 The thought [...] as of this encounter Progress Notes * Jimbo Villagran, DO - 08/13/2023 5:01 PM EDT MATERNAL MEDICINE VISIT Ekaterina Abraham presented today at 23w1d to [facility] for an ultrasound. She is being seen today by Maternal- Medicine for the following reasons: Problem List Items Addressed This Visit Hypothyroidism affecting She presents for follow-up of growth secondary to advanced maternal age, hypothyroidism with a recent medication change, and class I obesity. Today's ultrasound notes the following: The estimated weight is appropriate for gestational age in the 54th percentile. The visualized anatomy is unremarkable in appearance. The amniotic fluid amount appears normal. AMA (advanced maternal age) multigravida 35+ - Primary Obesity in , antepartum I reviewed the ultrasound images. Ekaterina Abraham was given the opportunity to meet with me if she had any questions. Please refer to the ultrasound report for additional details about today's ultrasound examination. RECOMMENDATIONS: No follow-up with Maternal Medicine is necessary unless further questions or indications arise. Please see prior [facility] documentation. Thank you for allowing us to participate in the care of this patient. Please call with any questions. Jimbo Villagran DO 08/13/2023 5:01 PM documented in this encounter Miscellaneous Notes * Assessment & Plan Note - Jimbo Villagran DO - 08/13/2023 5:01 PM EDT Associated Problem(s): Hypothyroidism affecting She presents for follow-up of growth secondary to advanced maternal age, hypothyroidism with a recent medication change, and class I obesity. Today's ultrasound notes the following: The estimated weight is appropriate for gestational age in the 54th percentile. The visualized anatomy is unremarkable in appearance. The amniotic fluid amount appears normal. documented in this encounter Plan of Treatment Upcoming Encounters Date Type Department Care Team (Late st Contact Info) Description 08/24/2023 7:45 AM EDT [facility] [address] [place] [address] Loree Rodriguez PA-C [address] [place] [address] 04/29/2024 3:20 PM EST [facility] [address] [place] [address] Stephanie Manley MD [address], [place] [id number] Scheduled Referrals Name Type Priority Associated Diagnoses Orde r Schedule MATERNAL MEDICINE REFERRAL OP Referral Within 10 days (routine) Hypothyroidism affecting in second trimester Ordered: 07/27/2023 Health Maintenance Due Date Last Done Comments Depression Screening 2000 Hepatitis B (1 of 3 - 19+ 3-dose series) 09/22/2007 COVID-19 Vaccine (2022- season) 2023 08/27/2020, 08/06/2020 Influenza Vaccine (FLU shot) (#1) 2023 02/09/2022, 07/04/2021 TSH 07/10/2024 07/10/2023, 03/29, 02/05/2023, Additional history exists Pap Smear 05/01/2026 05/01/2023, [...] Diagnosis Multigravida of advanced maternal age in second trimester- Primary Hypothyroidism affecting in second trimester Obesity in , antepartum Obesity complicating , childbirth, or the puerperium, antepartum condition or complication documented in this encounter Additional Health Concerns Infection Onset Date Last Indicated Resolved Time COVID-19 (confirmed) 10/18/2021 10/18/2021 documented as of this encounter Care Teams Sandblast Carver Relationship Specialty Start Date End Date Terri Iniguez MD [address] [place] [address] PCP - General Family Medicine 03/27/22 documented as of this encounter
--- OUTSIDE RECORDS SUMMARY | 2023-12-05 19:57 | External Medical Summary | Summary of Care ---
Author Name Unknown Organization [facility] Address [address] [place] [address] Phone [phone] Care Team Providers Care Converting Technician Name Role Phone Terri Iniguez MD Primary Care Provid er Reason for Visit * Reason Onset Date Comments Referral 07/27/2023 Encounter Details Date Type Department Care Team (Late st Contact Info) Description 07/27/2023 Telephone Marketing Database Analyst Obstetrics Maternal Medicine, [place] [address] [place] [address] [place], Nurse Marketing Database Analyst [facility] [address] [place], [place] [id number] Referral Allergies Active Allergy Reactions Criticality Noted Date Comments Cephalosporins Rash 02/12/2010 documented as of this encounter (statuses as of 07/31/2023) Medications Medication Sig Dispensed Refills Start Date [...] as of this encounter (statuses as of 07/31/2023) Active Problems Problem Noted Date Diagnosed Date [...] 04/23/2023 01:02 PM Last Assessment & Plan: I recommended follow-up testing at least each trimester or as otherwise recommended by endocrinology. We reviewed typical goal for a TSH < 2.5 in . COVID-19 vaccine series completed 07/04/2021 Overview: Completed Covid Pfizer vaccine 08/27/20 Had Covid booster 03/26/21 Last Assessment & Plan: During the visit today, COVID-19 vaccination was discussed and all questions were answered. The following information was shared with the patient. The [place] [employer]s [employer] Gyne[employer], Society for Maternal- Medicine, CDC and multiple medical associations strongly recommend the COVID-19 vaccine for women who are in any trimester, those attempting to become , women who have recently delivered, who are lactating as well as any other woman, regardless of age or RETICLE PRINTER disorder. The only exceptions to receiving the vaccine are for those who have a contraindication or allergy to the vaccine or any component of the vaccine or with sincerely held baptist convictions. The CDC and ACOG encourages a COVID-19 vaccine booster for women, given the risk of severe complications from COVID-19 in . Estimated Date of Delivery Comme nts Yes 12/09/2023 Based on last me nstrual period of 03/04/2023 (Exact Date) documented as of this encounter (statuses as of 07/31/2023) Resolved Problems Problem Noted Date Diagnosed Date Resolved Date Supervision of high risk pre gnancy in first trimester 05/08/2023 05/30/2023 with 9 completed weeks gestation 05/08/2023 05/24/2023 COVID-19 affecting , antepartum 10/28/2021 05/01/2023 Overview: dx'd 10/19 Supervision of normal first 07/04/2021 03/30/2022 Overview: Received covid vax x2 and booster documented as of this encounter (statuses as of 07/31/2023) Immunizations Name Administration Dates Next Due COVID-19 [...] money to get more. Never true 05/01/2023 [place] Depression Scale Answer Date Recorded [place] Depression Scale Total 5 05/01/2023 The thought [...] encounter Miscellaneous Notes * Telephone Encounter - Melissa Viera OSA - 07/31/2023 11:30 AM EST Spoke with Ekaterina. Appointment scheduled. Patient aware of date, time and location of Maternal Medicine appointment. * Telephone Encounter - Melissa Viera OSA - 07/27/2023 9:42 AM EST Spoke with Ekaterina she would like to speak with OB prior to scheduling. * Telephone Encounter - Lanette Espinal CCMA - 07/27/2023 9:31 AM EST Estimated Date of Delivery: 12/09/23 Please schedule for SHORT SCAN, in time frame of 2-3 weeks at location [facility] with the indication of increase in thyroid medication. Referring Provider: Loree Rodriguez PA-C documented in this encounter Plan of Treatment Upcoming Encounters Date Type Department Care Team (Late st Contact Info) Description 08/13/2023 2:30 PM EDT Office Visit Marketing Database Analyst Obstetrics Maternal Medicine, [place] [address] [place] [address] Jimbo Villagran DO [address] [place] [address] 08/13/2023 2:30 PM EDT Imaging [facility] [place] [address] [place] [address] 08/24/2023 7:45 AM EDT Office Visit Gynecology/Obstetrics Ev Devries [address] [place] [address] Loree Rodriguez PA-C [address] [place] [address] 04/29/2024 3:20 PM EST Office Visit Endocrinology, [place] [address] [facility] [place] [address] Stephanie Manley MD [address] [place] [facility] [place] [address] Health Maintenance Due Date Last Done Comments [...] documented as of this encounter Care Teams Converting Technician Relationship Specialty Start Date End Date Terri Iniguez MD [address] [place] [address] PCP - General Family Medicine 03/27/22 documented as of this encounter
--- OUTSIDE RECORDS SUMMARY | 2023-12-05 19:57 | External Medical Summary ---
Author Name Unknown Address Unknown Organization [id number]:[facility] [place] [address] [place] [address] Laboratory Report Ordering Provider Test Date Status NICOLETTE ANDERSON 2023 09:34:20 Final Observation Date Value Abnormality Reference (Units ) Status Folic Acid 2023 09:34:20 >20.0 >4.5 (ng/ mL) Final Performing Location [facility] [place] [address] [place] [address]
--- OUTSIDE RECORDS SUMMARY | 2023-12-05 19:57 | External Medical Summary ---
Author Name Unknown Address Unknown Organization [id number]:[facility] [place] - [address] [place] [address] Laboratory Report Ordering Provider Test Date Status TONNY,DONALDO 2023 09:34:20 Final Observation Date Value Abnormality Reference (Units ) Status TSH 2023 09:34:20 2.17 0.27-4.20 (uIU/mL) Final Performing Location LABORATORY C - [address] [place] [address]
--- OUTSIDE RECORDS SUMMARY | 2023-12-05 19:57 | External Medical Summary ---
Author Name Unknown Address Unknown Organization [id number]:[facility] [place] [address] [place] [address] Laboratory Report Ordering Provider Test Date Status NICOLETTE ANDERSON 2023 09:34:20 Final Observation Date Value Abnormality Reference (Units ) Status WBC, Total 2023 09:34:20 8.88 4.00-10.8 0 (K/uL) Final RBC 2023 09:34:20 3.67 3.85-5.15 (M/uL) Final Hemoglobin 2023 09:34:20 11.7 Below low normal 12 .0-15.3 (g/dL) Final Anemia reflex testing trigge rs on a HGB < 12.0 for Females and HGB < 13.0 for Males in accordance with the WHO Anemia Guidelines
Anemia reflex testing triggers on a HGB < 12.0 for Females and HGB < 13.0 for Males in accordance with the WHO Anemia Guidelines HCT 2023 09:34:20 35.8 Below low normal 36. 0-45.2 (%) Final MCV 2023 09:34:20 97.5 81.5-97.5 (fL) Final MCH 2023 09:34:20 31.9 27.0-34.0 (pg) Final MCHC 2023 09:34:20 32.7 32.0-36.0 (g/dL) Final RDW 2023 09:34:20 13.2 11.5-15.5 (%) Final Platelets 2023 09:34:20 234 140-400 (K /uL) Final MPV 2023 09:34:20 10.0 6.6-11.1 ( fL) Final Nucleated erythrocytes/100 leukocytes [Ratio] in Blood by Automated count 2023 09:34:20 0 <=0 (/100 WBCs) Final Performing Location [facility] [place] - [address] [facility] [address]
--- OUTSIDE RECORDS SUMMARY | 2023-12-05 19:57 | External Medical Summary | Summary of Care ---
Author Name Unknown Organization [facility] Address [address] [place] [address] Phone [phone] Care Team Providers Care Engagement Quality Consultant Name Role Phone Terri Iniguez MD Primary Care Provid er Reason for Visit * Reason Onset Date Comments Referral 05/01/2023 Encounter Details Date Type Department Care Team (Late st Contact Info) Description 05/01/2023 Telephone Telecommunications Technician Obstetrics Maternal Medicine, [place] [address] [place] [address] [place], Nurse Telecommunications Technician [facility] [address] [place], [place] [phone] Referral Allergies Active Allergy Reactions Criticality Noted Date Comments Cephalosporins Rash 02/12/2010 documented as of this encounter (statuses as of 07/31/2023) Medications Medication Sig Dispensed Refills Start Date End Date Status Formula 28-0.8-235 MG Oral Capsule Take by mouth. 0 Active Levothyroxine Sodium 112 MCG Oral Tablet (Levoxyl)Indicati ons:Family history of Dinh thyroiditis,Hypot hyroidism, unspecified type Take 1 Tablet by mouth daily first thing in the morning. (at least 30 min prior to breakfast or other meds) 90 Tablet 3 04/26/2023 07/18/2023 Discontinued (Refill) documented as of this encounter (statuses as of 07/31/2023) Active Problems Problem Noted Date Diagnosed Date Normal 05/01/2023 AMA (advanced maternal age) multigravida 35+ 12/ 09/2022 Overview: Age 33 at delivery NIPT: [...] information was shared with the patient. The [place] [employer]s [employer] Gyne[employer], Society for Maternal- Medicine, CDC and multiple medical associations strongly recommend the COVID-19 vaccine for women who are in any trimester, those attempting to become , women who have recently delivered, who are lactating as well as any other woman, regardless of age or REVERSER disorder. The only exceptions to receiving the vaccine are for those who have a contraindication or allergy to the vaccine or any component of the vaccine or with sincerely held anabaptism convictions. The CDC and ACOG encourages a [...] money to get more. Never true 05/01/2023 [place] Depression Scale Answer Date Recorded [place] Depression Scale Total 5 05/01/2023 The thought [...] encounter Miscellaneous Notes * Telephone Encounter - Roberta Rios OSA - 05/02/2023 8:48 AM EST Appointments scheduled * Telephone Encounter - Lanette Espinal MED ASSIST - 05/01/2023 4:10 PM EST Estimated Date of Delivery: 12/09/23 Please schedule for 45 MINUTE CONSULT SIMPLE MEDICAL WITH VETERINARY ASSISTANT, in time frame of next available or atpatient's earliest convenience at location [facility] with the indication of AMA (35), hypothyroidism, class I obesity. Please schedule anatomy between 19-21 weeks (07/15/23-07/30/23). Referring Provider: Jacklyn Mclaughlin CRNP documented in this encounter Plan of Treatment Upcoming Encounters Date Type Department Care Team (Late st Contact Info) Description 08/13/2023 2:30 PM EDT Office Visit Telecommunications Technician Obstetrics Maternal Medicine, [place] [address] [place] [address] Jimbo Villagran, [address] [place] [address] 08/13/2023 2:30 PM EDT [facility] [address] [place] [address] 08/24/2023 7:45 AM EDT Office Visit Gynecology/Obstetrics Ev Devries [address] [place] [address] Loree Rodriguez PA-C [address] [place] [address] 04/29/2024 3:20 PM EST Office Visit Endocrinology, [place] [address] [place] [address] Stephanie Manley MD [address] [place] [address] Health Maintenance Due Date Last Done Comments [...] documented as of this encounter Care Teams Engagement Quality Consultant Relationship Specialty Start Date End Date Terri Iniguez MD [address] [place] [address] PCP - General Family Medicine 03/27/22 documented as of this encounter
--- OUTSIDE RECORDS SUMMARY | 2023-12-05 19:57 | External Medical Summary | Summary of Care ---
Author Name Unknown Organization [facility] Address [address] [place] [address] Phone [phone] Care Team Providers Care Sample Mounter Name Role Phone Terri Iniguez MD Primary Care Provid er Reason for Visit * Reason Comments Outpatient Testing Encounter Details Date Type Department Care Team (Late st Contact Info) Description 07/10/2023 2:00 PM EST Laboratory Laboratory, [place] [address] [place] [address] [place] [address] [place] [address] Family history of Dinh thyroiditis; Hypothyroidism, unspecified type Allergies Active Allergy Reactions Criticality Noted Date Comments Cephalosporins Rash 02/12/2010 documented as of this encounter (statuses as of 07/10/2023) Medications Medication Sig Dispensed Refills Start Date End Date Status Formula 28-0.8-235 MG Oral Capsule Take by mouth. 0 Active Levothyroxine Sodium 112 MCG Oral Tablet (Levoxyl)Indications:F amily history of Dinh thyroiditis,Hypothyroi dism, unspecified type Take 1 Tablet by mouth daily first thing in the morning. (at least 30 min prior to breakfast or other meds) 90 Tablet 3 04/26/2023 Active Ondansetron 4 MG Oral Tablet Disintegrating (Zofran)Indications:Na usea and vomiting during Place 1 Tablet on tongue every 8 hours as needed for Nausea. dissolve on tongue. 30 Tablet 1 05/30/2023 Active documented as of this encounter (statuses as of 07/10/2023) Active Problems Problem Noted Date Diagnosed Date Normal 05/01/2023 AMA (advanced maternal age) multigravida 35+ 09/2022 Overview: Age 33 at delivery NIPT: MFM ordered MFM nuchal translucency scheduled 05/24/2023 MFM anatomy scan scheduled 07/16/2023 Genetic referral: declines at this time Last Assessment & Plan: She presents for an early assessment secondary to advanced maternal age, hypothyroid and class I obesity. Today's ultrasound notes the following: Single viable intrauterine with biometry consistent with clinical dates. The visualized early anatomy is unremarkable in appearance. Obesity in , antepartum 05/01/2023 Overview: Pre [...] Lab Results Component Value Date/Time TSH - ASHWIN 1.06 04/23/2023 01:02 PM Last Assessment & Plan: CONSIDERATIONS: Discussed with the patient that uncontrolled maternal hypothyroidism is associated with compromised neuropsychological development of the developing fetus in addition to an increased risk of miscarriage, , preeclampsia, placental abruption, low weight infants, and IUFD. These risks are modifiable with thyroid-replacement medications. Thyroid-replacement therapies are safe to use during and essential to normal development. One third of hypothyroid patients will require increased T4 supplementation in . Discussed that she should space her thyroxine dose and her vitamin, iron or calcium doses by 2-3 hours as these can interfere with thyroxine absorption. If hypothyroidism is due to treated Graves' disease, the fetus may be at risk for or goiter/hyperthyroidism due to the residual presence of maternal thyroid receptor antibodies (TRAb). RECOMMENDATIONS: In women with pre- diagnosis of hypothyroidism, recommend assessing TSH every 4-6 weeks until the patient is euthyroid based on TSH (first trimester, 0.1-2.5 mIU/L; second trimester, 0.2-2.5 mIU/L; third trimester, 0.3-2.5 mIU/L). After any adjustment of thyroid replacement dosing, recheck TSH 4-6 weeks later. Once euthyroidism is attained, TSH should be assessed every trimester. In those with previous radioiodine ablation or thyroidectomy, anticipatory increases of T4 replacement by 25% are suggested to decrease the likelihood of significant hypothyroidism in . Maternal Medicine ultrasound is only indicated if patient requires an adjustment of her thyroid replacement therapy dosing after the first trimester of . Refer back to [facility] if this occurs. She should continue to have growth assessments with MFM while she is clinically hypothyroid. If patient experiences thyroid goiter or nodule during , we recommend that she be referred to endocrinology for evaluation and management. is not a contraindication to fine needle aspiration but should be handled at the discretion of the grappler. For women with a history of treated Graves' disease, third trimester MFM ultrasound should be performed to evaluate for goiter. Please refer immediately back to MFM for persistent tachycardia on office evaluation as this may also be a symptom of hyperthyroidism. Please check TSI/TRAb after 20 weeks and notify MFM if positive. We will alert pediatrics to the need for possible follow-up. If hypothyroidism is poorly controlled, consider weekly NSTs at 32 weeks. COVID-19 vaccine series completed 07/04/2021 Overview: Completed [...] any other woman, regardless of age or BICYCLE MESSENGER disorder. The only exceptions to receiving the [...] Comme nts Yes 12/09/2023 Based on last sd nstrual period of 03/04/2023 (Exact Date) documented as of this encounter (statuses as of 07/10/2023) Resolved Problems Problem Noted Date Diagnosed Date Resolved Date Supervision of high risk pre gnancy in first trimester 05/08/2023 05/30/2023 with 9 completed weeks gestation 05/08/2023 05/24/2023 COVID-19 affecting , antepartum 10/28/2021 05/01/2023 Overview: dx'd 10/19 Supervision of normal first 07/04/2021 03/30/2022 Overview: Received covid vax x2 and booster documented as of this encounter (statuses as of 07/10/2023) Immunizations Name Administration Dates Next Due COVID-19 [...] have a drink containing alc ohol? Patient refused 06/29/2020 Q2: How many drinks containi ng alcohol do you have on a typical day when you are drinking? Patient refused 06/29/2020 Q3: How often do you have si x or more drinks on one occasion? Patient refused 06/29/2020 Hunger Vital Sign Answer Date Recorded Within the past 12 months, y ou worried that your food would run out before you got the money to buy more. Never true 05/01/20 23 Within the past 12 months, t he food you bought just didn't last and you didn't have money to get more. Never true 05/01/2023 [place] Depression Scale Answer Date Recorded [place] Depression Scale Total 5 05/01/2023 The thought [...] Care Team (Late st Contact Info) Description 07/16/2023 8:30 AM EST Office Visit Desk Reporter Obstetrics Maternal Medicine, [place] [address] [place] [address] Jimbo Villagran DO [address] [place] [address] 07/16/2023 8:30 AM EST Imaging Radiology [facility], [place] [address] [place] [address] 07/27/2023 7:45 AM EST Office Visit Gynecology/Obstetrics [facility] [address] [facility] [place] [address] Loree Rodriguez PA-C [address] [facility] [place] [address] 04/29/2024 3:20 PM EST Office Visit Endocrinology, [place] [address] [place] [address] Stephanie Manley MD [address] [place] [address] Pending Results Name Type Priority Associated Diagnoses Date /Time TSH WITH FREE T4 IF INDICATED Lab Routine Family history of Dinh thyroiditis Hypothyroidism, unspecified type 07/10/2023 3:32 PM EST Health Maintenance Due Date Last Done Comments Hepatitis B (1 of 3 - 3-dose series) 1988 Depression Screening 2000 COVID-19 Vaccine ( season) 2023 08/27/2020, 08/06/2020 Influenza Vaccine (FLU shot) (#1) 2023 02/09/2022, 07/04/2021 TSH 04/23/2024 04/23/2023, 01/26, 11/17/2022, Additional history exists Pap Smear 05/01/2026 05/01/2023, [...] endocrine and metabolic diseases Hypothyroidism, unspecified type documented in this encounter Additional Health Concerns Infection Onset Date Last Indicated Resolved Time COVID-19 (confirmed) 10/18/2021 10/18/2021 documented as of this encounter Care Teams Sample Mounter Relationship Specialty Start Date End Date Terri Iniguez MD [address] [place] [address] PCP - General Family Medicine 03/27/22 documented as of this encounter
--- OUTSIDE RECORDS SUMMARY | 2023-12-05 19:57 | External Medical Summary | Summary of Care ---
Author Name Unknown Organization [facility] Address [address] [place] [address] Phone [phone] Care Team Providers Care Baking Powder Mixer Name Role Phone Terri Iniguez MD Primary Care Provid er Reason for Referral * Evaluate & Treat - Unlimited Visits (Within 10 days (routine)) - Pending Review Specialty Diagnoses / Procedures Referred By Contac t Referred To Contact Obstetrics/Gynecology / Maternal Medicine Diagnoses Hypothyroidism affecting in second trimester Loree Rodriguez PA-C [address] [facility] [place] [address] Referral ID Status Reason Start Date Expiration Date Visits Requested Visits Authorized [id number] Pending Review Specialty Services Required 07/27/[phone] Question Answer Referral Priority Within 10 days (routine) Has the patient had a viability scan? Yes Date performed 05/01/2023 Location performed Radiology Reason for referral Maternal medical condition Please provide additional details following with MFM, discharged from care after anatomy, recently had thryoid medication dose change -- referral back d/t this. Pt [facility] if able Where should this appointment be scheduled? [facility] Comments /Para: LMP: Patient's last menstrual period was 03/04/2023 (exact date). Patient is . ADI: 12/09/2023, by Last Menstrual Period Pre-Gravid BMI: 30.42 Reason for Visit * Reason Comments Return Visit Encounter Details Date Type Department Care Team ([facility] Contact Info) Description 07/27/2023 7:45 AM EST Office Visit Gynecology/Obstetric s [facility] [address] [place] [address] Loree Rodriguez PA-C [address] [place] [address] Normal in second trimester*; Hypothyroidism affecting in second trimester; Multigravida of advanced maternal age in second trimester; Obesity in , antepartum Allergies Active Allergy Reactions Criticality Noted Date Comments Cephalosporins Rash 02/12/2010 documented as of this encounter (statuses as of 07/27/2023) Medications Medication Sig Dispensed Refills Start Date [...] as of this encounter (statuses as of 07/27/2023) Active Problems Problem Noted Date Diagnosed Date [...] information was shared with the patient. The [employer], Society for Maternal- Medicine, CDC and multiple medical associations strongly recommend the COVID-19 vaccine for women who are in any trimester, those attempting to become , women who have recently delivered, who are lactating as well as any other woman, regardless of age or LAW FIRM ADMINISTRATOR disorder. The only exceptions to receiving the vaccine are for those who have a contraindication or allergy to the vaccine or any component of the vaccine or with sincerely held alevism convictions. The CDC and ACOG encourages a COVID-19 vaccine booster for women, given the risk of severe complications from COVID-19 in . Estimated Date of Delivery Comme nts Yes 12/09/2023 Based on last me nstrual period of 03/04/2023 (Exact Date) documented as of this encounter (statuses as of 07/27/2023) Resolved Problems Problem Noted Date Diagnosed Date Resolved Date Supervision of high risk pre gnancy in first trimester 05/08/2023 05/30/2023 with 9 completed weeks gestation 05/08/2023 05/24/2023 COVID-19 affecting , antepartum 10/28/2021 05/01/2023 Overview: dx'd 10/19 Supervision of normal first 07/04/2021 03/30/2022 Overview: Received covid vax x2 and booster documented as of this encounter (statuses as of 07/27/2023) Immunizations Name Administration Dates Next Due COVID-19 [...] money to get more. Never true 05/01/2023 [place] Depression Scale Answer Date Recorded [place] Depression Scale Total 5 05/01/2023 The thought [...] Sign Reading Time Taken Comments Blood Pressure 112/62 07/27/2023 7:41 AM EST Pulse - - Temperature - - Respiratory Rate - - Oxygen Saturation - - Inhaled Oxygen Concentration - - Weight 108 kg (238 lb) 07/27/2023 7:41 AM EST Height 177.8 cm (5' 10") 07/27/2023 7:41 AM EST Body Mass Index 34.15 07/27/2023 7:41 AM EST documented in this encounter Progress Notes * Loree Rodriguez PA-C - 07/27/2023 7:53 AM EST 20w5d Doing well, no concerns. Denies VB, LOF, contractions. + quickening. Had anatomy with MF -- f/u as clinically indicated. Of note, pt did have dose increase in thyroid medication after this appointment d/t being under treated. Follows with endocrinology, plans repeat labs 4-6 weeks from change. Discussed referral back to [facility] for growth given their recommendations. Pt and partner agreeable. Prefers to schedule at [facility] if able. Referral back placed. RTC in 4 weeks Loree Rodriguez PA-C * Bernice Valiente LPN - 07/27/2023 7:41 AM EST 20w5d documented in this encounter Plan of Treatment Upcoming Encounters Date Type Department Care Team (Late st Contact Info) Description 08/24/2023 7:45 AM EDT Office Visit Gynecology/Obstetrics [facility] [address] [place] [address] Loree Rodriguez PA-C [address] [place] [address] 04/29/2024 3:20 PM EST Office Visit Endocrinology, [place] [address], [place] [id number] Stephanie Manley MD [address], [place] [id number] Scheduled Orders Name Type Priority Associated Diagnoses Orde r Schedule [facility] US MATERNAL 1ST FETUS Medical Imaging Routine Hypothyroidism affecting in second trimester Expected: 07/27/2023, Expires: 08/26/2024 Scheduled Referrals Name Type Priority Associated Diagnoses [...] this encounter Visit Diagnoses Diagnosis Normal in second trimester- Primary Hypothyroidism affecting in second trimester Multigravida of advanced maternal age in second trimester Obesity in , antepartum Obesity complicating , childbirth, or the puerperium, antepartum condition or complication documented in this encounter Additional Health Concerns Infection Onset Date Last Indicated Resolved Time COVID-19 (confirmed) 10/18/2021 10/18/2021 documented as of this encounter Care Teams Baking Powder Mixer Relationship Specialty Start Date End Date Terri Iniguez MD [address] [place] [address] PCP - General Family Medicine 03/27/22 documented as of this encounter
--- OUTSIDE RECORDS SUMMARY | 2023-12-05 19:57 | External Medical Summary | Summary of Care ---
Author Name Unknown Organization [facility] Address [address] [place] [address] Phone [phone] Care Team Providers Care Academic Coach Name Role Phone Terri Iniguez MD Primary Care Provid er Encounter Details Date Type Department Care Team (Late st Contact Info) Description 07/18/2023 Orders Only Endocrinology, [place] [address] [place] [address] Stephanie Manley MD [address] [place] [address] Family history of Dinh thyroiditis; Hypothyroidism, unspecified type Allergies Active Allergy Reactions Criticality Noted Date Comments Cephalosporins Rash 02/12/2010 documented as of this encounter (statuses as of 07/18/2023) Medications Medication Sig Dispensed Refills Start Date [...] other meds) 100 Tablet 3 07/18/2023 Active Levothyroxine Sodium 112 MCG Oral Tablet (Levoxyl)Indications :Family history of Dinh thyroiditis,Hypothyr oidism, unspecified type Take 1 Tablet by mouth daily first thing in the morning. (at least 30 min prior to breakfast or other meds) 90 Tablet 3 04/26/2023 4 Discontinue d(Refill) documented as of this encounter (statuses as of 07/18/2023) Active Problems Problem Noted Date Diagnosed Date [...] information was shared with the patient. The [place], Society for Maternal- Medicine, CDC and multiple medical associations strongly recommend the COVID-19 vaccine for women who are in any trimester, those attempting to become , women who have recently delivered, who are lactating as well as any other woman, regardless of age or FRONT END LOADER OPERATOR disorder. The only exceptions to receiving the vaccine are for those who have a contraindication or allergy to the vaccine or any component of the vaccine or with sincerely held sabianist convictions. The CDC and ACOG encourages a COVID-19 vaccine booster for women, given the risk of severe complications from COVID-19 in . Estimated Date of Delivery Comme nts Yes 12/09/2023 Based on last me nstrual period of 03/04/2023 (Exact Date) documented as of this encounter (statuses as of 07/18/2023) Resolved Problems Problem Noted Date Diagnosed Date Resolved Date Supervision of high risk pre gnancy in first trimester 05/08/2023 05/30/2023 with 9 completed weeks gestation 05/08/2023 05/24/2023 COVID-19 affecting , antepartum 10/28/2021 05/01/2023 Overview: dx'd 10/19 Supervision of normal first 07/04/2021 03/30/2022 Overview: Received covid vax x2 and booster documented as of this encounter (statuses as of 07/18/2023) Immunizations Name Administration Dates Next Due COVID-19 mRNA, LNP-s, No Pre serve, 2-Dose Series ([employer]) 08/27/2020,08/06/2020 Seasonal Influenza, PF, 6 M & [...] money to get more. Never true 05/01/2023 [place] Depression Scale Answer Date Recorded [place] Depression Scale Total 5 05/01/2023 The thought [...] Team (Late st Contact Info) Description 07/27/2023 7:45 AM EST Office Visit Gynecology/Obstetrics [facility] [address] [place] [address] Loree Rodriguez PA-C [address] [place] [address] 04/29/2024 3:20 PM EST Office Visit Endocrinology, [place] [address] [place] [address] Stephanie Manley MD [address] [place] [address] Scheduled Orders Name Type Priority Associated Diagnoses Orde r Schedule TSH WITH FREE T4 IF INDICATED Lab Routine Hypothyroidism, unspecified type Expected: 08/16/2023 (Approximate), Expires: 07/18/2024 Health Maintenance Due Date Last Done Comments Depression Screening 2000 Hepatitis B (1 of 3 - + 3-dose series) 09/22/2007 COVID-19 Vaccine ( season) [...] documented as of this encounter Care Teams Academic Coach Relationship Specialty Start Date End Date Terri Iniguez MD [address] [place] [address] PCP - General Family Medicine 03/27/22 documented as of this encounter
--- OUTSIDE RECORDS SUMMARY | 2023-12-05 19:57 | External Medical Summary | Summary of Care ---
Author Name Unknown Organization [facility] Address [address] [place] [address] Phone [phone] Care Team Providers Care Hat Designer Name Role Phone Terri Iniguez MD Primary Care Provid er Reason for Visit * Reason Comments Outpatient Testing Encounter Details Date Type Department Care Team (Late st Contact Info) Description 08/23/2023 3:40 PM EDT Laboratory Laboratory, [place] [address] [place] [address] [place], [facility] [address] [place] [address] Hypothyroidism, unspecified type Allergies Active Allergy Reactions Criticality Noted Date Comments Cephalosporins Rash 02/12/2010 documented as of this encounter (statuses as of 08/23/2023) Medications Medication Sig Dispensed Refills Start Date [...] as of this encounter (statuses as of 08/23/2023) Active Problems Problem Noted Date Diagnosed Date [...] information was shared with the patient. The [employer] [employer], Society for Maternal- Medicine, CDC and multiple medical associations strongly recommend the COVID-19 vaccine for women who are in any trimester, those attempting to become , women who have recently delivered, who are lactating as well as any other woman, regardless of age or KILN PUSHER disorder. The only exceptions to receiving the [...] as of this encounter (statuses as of 08/23/2023) Resolved Problems Problem Noted Date Diagnosed Date Resolved Date Supervision of high risk pre gnancy in first trimester 05/08/2023 05/30/2023 with 9 completed weeks gestation 05/08/2023 05/24/2023 COVID-19 affecting , antepartum 10/28/2021 05/01/2023 Overview: dx'd 10/19 Supervision of normal first 07/04/2021 03/30/2022 Overview: Received covid vax x2 and booster documented as of this encounter (statuses as of 08/23/2023) Immunizations Name Administration Dates Next Due COVID-19 [...] money to get more. Never true 05/01/2023 [place] Depression Scale Answer Date Recorded [place] Depression Scale Total 5 05/01/2023 The thought [...] [facility] [address] [place] [address] Loree Rodriguez PA-C [address] [place] [address] 04/29/2024 3:20 PM EST [facility] [address] [place] [address] Stephanie Manley MD [address] [place], [place] [id number] Pending Results Name Type Priority Associated Diagnoses Date /Time TSH WITH FREE T4 IF INDICATED Lab Routine Hypothyroidism, unspecified type 08/23/2023 3:13 PM EDT Health Maintenance Due Date Last Done [...] as of this encounter Visit Diagnoses Diagnosis Hypothyroidism, unspecified type documented in this encounter Additional Health Concerns Infection Onset Date Last Indicated Resolved Time COVID-19 (confirmed) 10/18/2021 10/18/2021 documented as of this encounter Care Teams Hat Designer Relationship Specialty Start Date End Date Terri Iniguez MD [address] [place] [address] PCP - General Family Medicine 03/27/22 documented as of this encounter
--- OUTSIDE RECORDS SUMMARY | 2023-12-05 19:57 | External Medical Summary | Summary of Care ---
Author Name Unknown Organization [facility] Address [address] [place] [address] Phone [phone] Care Team Providers Care Utility Driver Name Role Phone Terri Iniguez MD Primary Care Provid er Encounter Details Date Type Department Care Team (Late st Contact Info) Description 05/17/2023 Telephone Gynecology/Obstetrics [facility] [address] [facility] [place] [address] Alecia Burger MD [address] [facility] [place] [address] Allergies Active Allergy Reactions Criticality Noted Date Comments Cephalosporins Rash 02/12/2010 documented as of this encounter (statuses as of 06/15/2023) Medications Medication Sig Dispensed Refills Start Date End Date Status Formula 28-0.8-235 MG Oral Capsule Take by mouth. 0 Active Levothyroxine Sodium 112 MCG Oral Tablet (Levoxyl)Indications :Family history of Dinh thyroiditis,Hypothyr oidism, unspecified type Take 1 Tablet by mouth daily first thing in the morning. (at least 30 min prior to breakfast or other meds) 90 Tablet 3 04/26/2023 Active documented as of this encounter (statuses as of 06/15/2023) Active Problems Problem Noted Date Diagnosed Date [...] first trimester of . Refer back to MFM if this occurs. She should continue to have growth assessments with MFM while she is clinically hypothyroid. If patient experiences thyroid goiter or nodule during , we recommend that she be referred to endocrinology for evaluation and management. is not a contraindication to fine needle aspiration but should be handled at the discretion of the metal building assembler. For women with a history of treated [...] information was shared with the patient. The [place] [employer]st[employer]s and Gyne[employer], Society for Maternal- Medicine, CDC and multiple medical associations strongly recommend the COVID-19 vaccine for women who are in any trimester, those attempting to become , women who have recently delivered, who are lactating as well as any other woman, regardless of age or RN PLASTIC SURGERY disorder. The only exceptions to receiving the vaccine are for those who have a contraindication or allergy to the vaccine or any component of the vaccine or with sincerely held restorationism convictions. The CDC and ACOG encourages a COVID-19 vaccine booster for women, given the risk of severe complications from COVID-19 in . Estimated Date of Delivery Comme nts Yes 12/09/2023 Based on last me nstrual period of 03/04/2023 (Exact Date) documented as of this encounter (statuses as of 06/15/2023) Resolved Problems Problem Noted Date Diagnosed Date Resolved Date Supervision of high risk pre gnancy in first trimester 05/08/2023 05/30/2023 with 9 completed weeks gestation 05/08/2023 05/24/2023 COVID-19 affecting , antepartum 10/28/2021 05/01/2023 Overview: dx'd 10/19 Supervision of normal first 07/04/2021 03/30/2022 Overview: Received covid vax x2 and booster documented as of this encounter (statuses as of 06/15/2023) Immunizations Name Administration Dates Next Due COVID-19 [...] money to get more. Never true 05/01/2023 [place] Depression Scale Answer Date Recorded [place] Depression Scale Total 5 05/01/2023 The thought [...] Telephone Encounter - Iris Snow LPN - 05/17/2023 8:34 AM EST ----- Message from Alecia Burger MD sent at 05/16/2023 4:54 PM EST ----- Please let patient Know that I reviewed her ultrasound, normal heart rate, yolk sac present, corresponds to over 10 weeks. Corpus luteum cyst. There is still a subchorionic hemorrhage but has not changed in size. Patient to call with any heavy bleeding or pain Thank you ----- Message ----- From: Derrick Gomez In Sent: 05/16/2023 3:33 PM EST To: Alecia Burger MD documented in this encounter Plan of Treatment Upcoming Encounters Date Type Department Care Team (Late st Contact Info) Description 06/29/2023 7:45 AM EST Office Visit Gynecology/Obstetrics [facility] [address] [facility] [place] [address] Loree Rodriguez PA-C [address] [facility] [place] [address] 07/16/2023 8:30 AM EST Office Visit Photographer Scientific Obstetrics Maternal Medicine, [place] [address] [place], [place] [phone] Jimbo Villagran, [address] [place] [address] 07/16/2023 8:30 AM EST Imaging Radiology [facility], [place] [address] [place], [place] [phone] 04/29/2024 3:20 PM EST Office Visit Endocrinology, [place] [address] [place] [address] Stephanie Manley MD [address] [place], [place] [phone] Health Maintenance Due Date Last Done Comments Hepatitis B (1 of 3 - 3-dose series) 1988 Depression Screening 2000 COVID-19 Vaccine (2022- season) 2023 08/27/2020, 08/06/2020 [...] documented as of this encounter Care Teams Utility Driver Relationship Specialty Start Date End Date Terri Iniguez MD [address] [place] [address] PCP - General Family Medicine 03/27/22 documented as of this encounter
--- OUTSIDE RECORDS SUMMARY | 2023-12-05 19:57 | External Medical Summary | Summary of Care ---
Author Name Unknown Organization [facility] Address [address] [facility] [place] [address] Phone [phone] Care Team Providers Care Awnings Mechanic Name Role Phone Terri Iniguez MD Primary Care Provid er Reason for Visit * Reason Comments Return Visit Encounter Details Date Type Department Care Team (Late st Contact Info) Description 06/29/2023 7:45 AM EST Office Visit Gynecology/Obstetric s Ev [facility] [address] [place] [address] Loree Rodriguez PA-C [address] [place] [address] Normal in second trimester*; Hypothyroidism affecting in second trimester; Multigravida of advanced maternal age in second trimester; Obesity in , antepartum Allergies Active Allergy Reactions Criticality Noted Date Comments Cephalosporins Rash 02/12/2010 documented as of this encounter (statuses as of 06/29/2023) Medications Medication Sig Dispensed Refills Start Date [...] as of this encounter (statuses as of 06/29/2023) Active Problems Problem Noted Date Diagnosed Date [...] first trimester of . Refer back to [facility] if this occurs. She should continue to have growth assessments with MFM while she is clinically hypothyroid. If patient experiences thyroid goiter or nodule during , we recommend that she be referred to endocrinology for evaluation and management. is not a contraindication to fine needle aspiration but should be handled at the discretion of the quill winder. For women with a history of treated [...] information was shared with the patient. The [place] [employer] Obstetrics and Gynecology, Society for Maternal- Medicine, CDC and multiple medical associations strongly recommend the COVID-19 vaccine for women who are in any trimester, those attempting to become , women who have recently delivered, who are lactating as well as any other woman, regardless of age or DIRECTOR OF INCOME TAX disorder. The only exceptions to receiving the vaccine are for those who have a contraindication or allergy to the vaccine or any component of the vaccine or with sincerely held anglican convictions. The CDC and ACOG encourages a COVID-19 vaccine booster for women, given the risk of severe complications from COVID-19 in . Estimated Date of Delivery Comme nts Yes 12/09/2023 Based on last me nstrual period of 03/04/2023 (Exact Date) documented as of this encounter (statuses as of 06/29/2023) Resolved Problems Problem Noted Date Diagnosed Date Resolved Date Supervision of high risk pre gnancy in first trimester 05/08/2023 05/30/2023 with 9 completed weeks gestation 05/08/2023 05/24/2023 COVID-19 affecting , antepartum 10/28/2021 05/01/2023 Overview: dx'd 10/19 Supervision of normal first 07/04/2021 03/30/2022 Overview: Received covid vax x2 and booster documented as of this encounter (statuses as of 06/29/2023) Immunizations Name Administration Dates Next Due COVID-19 [...] money to get more. Never true 05/01/2023 [place] Depression Scale Answer Date Recorded [place] Depression Scale Total 5 05/01/2023 The thought [...] Sign Reading Time Taken Comments Blood Pressure 108/62 06/29/2023 7:38 AM EST Pulse - - Temperature - - Respiratory Rate - - Oxygen Saturation - - Inhaled Oxygen Concentration - - Weight 104 kg (229 lb 3.2 oz) 06/29/2023 7:38 AM EST Height 177.8 cm (5' 10") 06/29/2023 7:38 AM EST Body Mass Index 32.89 06/29/2023 7:38 AM EST documented in this encounter Progress Notes * Loree Rodriguez PA-C - 06/29/2023 7:52 AM EST 16w5d Excited to hear baby's heartbeat. Denies VB, LOF. No FM as of yet. First trimester symptoms resolving. Has anatomy with [facility]. Qnatal low risk. Discussed MSAFP for ONTD screening. She would like to discuss with friend who is genetic counselor and get back to office. Discussed timing 15-22 weeks for testing if interested. TSH qtrimester for thyroid disorder. No dose changes in this . Will stop by lab today for repeat. Standing order in place from Endocrinology. RTC in 4 weeks Loree Rodriguez PA-C documented in this encounter Nursing Notes * Inocencia Coulter RN - 06/29/2023 7:39 AM EST Patient here for HUI 16w5d No concerns Anatomy scheduled at [facility] documented in this encounter Plan of Treatment Upcoming Encounters Date Type Department Care Team (Late st Contact Info) Description 07/16/2023 8:30 AM EST Office Visit Web Content & Social Media Manager Obstetrics Maternal Medicine, [place] [address] [place] [address] Jimbo Villagran, [address] [place] [address] 07/16/2023 8:30 AM EST Imaging Radiology [facility], [place] [address] [place] [address] 07/27/2023 7:45 AM EST [facility] [address] [place] [address] Loree Rodriguez PA-C [address] [place] [address] 04/29/2024 3:20 PM EST Office Visit Endocrinology, [place] [address] [place] [address] Stephanie Manley MD [address] [place] [address] Health Maintenance Due Date Last Done Comments [...] documented as of this encounter Care Teams Awnings Mechanic Relationship Specialty Start Date End Date Terri Iniguez MD [address] [facility] [place] [address] PCP - General Family Medicine 03/27/22 documented as of this encounter
--- OUTSIDE RECORDS SUMMARY | 2023-12-05 19:57 | External Medical Summary ---
Author Name Unknown Address Unknown Organization [id number]:[facility] [place] [address] [facility] [address] Laboratory Report Ordering Provider Test Date Status NICOLETTE ANDERSON 2023 09:34:20 Final Observation Date Value Abnormality Reference (Units ) Status Retic, % (auto) 2023 09:34:20 2.42 Above high normal 0.80-1.90 (%) Final Reticulocytes, Absolute 2023 09:34:20 88.3 31.3-100.1 (K/uL) Final Reticulocyte fraction, immature 2023 09:34:20 23.0 Above high normal 2.5-20.6 (%) Final Reticulocyte HGB 2023 09:34:20 34.9 29.7-37.4 (pg) Final Performing Location LABORATORY [facility] [place] - [facility] [address] [place] [address]
--- OUTSIDE RECORDS SUMMARY | 2023-12-05 19:57 | External Medical Summary ---
Author Name Unknown Address Unknown Organization [id number][place] [place] [address] [place] [address] Laboratory Report Ordering Provider Test Date Status NICOLETTE ANDERSON 2023 09:34:20 Final Observation Date Value Abnormality Reference (Units ) Status Ferritin 2023 09:34:20 69 13-150 (ng /mL) Final Performing Location LAB[facility]ATORY [facility] - [address] [place] [address]
--- OUTSIDE RECORDS SUMMARY | 2023-12-05 19:57 | External Medical Summary ---
Author Name Unknown Address Unknown Organization [id number]:LABORATORY [facility] [place] - [address] [place] [address] Laboratory Report Ordering Provider Test Date Status DIVYA KIRKLAND 08/23/2023 15:13:29 Final Observation Date Value Abnormality Reference (Units ) Status TSH 08/23/2023 15:13:29 2.39 0.27-4.20 (uIU/mL) Final Performing Location [facility] [address] [facility] [address]
--- OUTSIDE RECORDS SUMMARY | 2023-12-05 19:57 | External Medical Summary ---
Author Name Unknown Address Unknown Organization [id number]:[facility] [place] [facility] [address] [place] [address] Laboratory Report Ordering Provider Test Date Status NICOLETTE ANDERSON 2023 09:34:20 Final Observation Date Value Abnormality Reference (Units ) Status Creatinine 2023 09:34:20 0.5 0.5-1.0 (mg/dL) Final Glomerular filtration rate/1.73 sq M.predicted [Volume Rate/Area] in Serum, Plasma or Blood by Creatinine-based formula (CKD-EPI) 2023 09:34:20 >90 >=60 (mL/min) Final eGFR is calculated based on the CKD-EPI 2020 equation Performing Location [facility] [place] [address] [place] [address]
--- OUTSIDE RECORDS SUMMARY | 2023-12-05 19:57 | External Medical Summary ---
Author Name Unknown Address Unknown Organization [id number]:LABORATORY [facility] [place] - [address] [place] [address] Laboratory Report Ordering Provider Test Date Status NICOLETTE ANDERSON 2023 09:34:20 Final Observation Date Value Abnormality Reference (Units ) Status Treponema pallidum Ab [Presence] in Serum by Immunoassay 2023 09:34:20 Nonreactive Nonreactive Final No serologic evidence of syp hilis. No additional testing clinicially indicated at this time. Consider repeat testing in 2-4 weeks if acute or primary syphilis is suspected. Performing Location LABORATORY [facility] [place] - [address] [place] [address]
--- OUTSIDE RECORDS SUMMARY | 2023-12-05 19:57 | External Medical Summary | Summary of Care ---
Author Name Unknown Organization [facility] Address [address] [facility] [place] [address] Phone [phone] Care Team Providers Care Fish Trapper Name Role Phone Terri Iniguez MD Primary Care Provid er Reason for Visit * Reason Comments Return Visit Encounter Details Date Type Department Care Team (Late st Contact Info) Description 08/24/2023 7:45 AM EDT Office Visit Gynecology/Obstetric s Ev [facility] [address] [place] [address] Loree Rodriguez PA-C [address] [place] [address] Normal in third trimester*; Hypothyroidism affecting in third trimester; Multigravida of advanced maternal age in third trimester; Obesity in , antepartum Allergies Active Allergy Reactions Criticality Noted Date Comments Cephalosporins Rash 02/12/2010 documented as of this encounter (statuses as of 08/24/2023) Medications Medication Sig Dispensed Refills Start Date [...] as of this encounter (statuses as of 08/24/2023) Active Problems Problem Noted Date Diagnosed Date [...] any other woman, regardless of age or UNIVERSITY ADMINISTRATIVE ASSISTANT disorder. The only exceptions to receiving the vaccine are for those who have a contraindication or allergy to the vaccine or any component of the vaccine or with sincerely held mormonism convictions. The CDC and ACOG encourages a COVID-19 vaccine booster for women, given the risk of severe complications from COVID-19 in . Estimated Date of Delivery Comme nts Yes 12/09/2023 Based on last me nstrual period of 03/04/2023 (Exact Date) documented as of this encounter (statuses as of 08/24/2023) Resolved Problems Problem Noted Date Diagnosed Date Resolved Date Supervision of high risk pre gnancy in first trimester 05/08/2023 05/30/2023 with 9 completed weeks gestation 05/08/2023 05/24/2023 COVID-19 affecting , antepartum 10/28/2021 05/01/2023 Overview: dx'd 10/19 Supervision of normal first 07/04/2021 03/30/2022 Overview: Received covid vax x2 and booster documented as of this encounter (statuses as of 08/24/2023) Immunizations Name Administration Dates Next Due COVID-19 mRNA, LNP-s, No Pre serve, 2-Dose Series (Womply) 08/27/2020,08/06/2020 Seasonal Influenza, PF, 6 M & [...] money to get more. Never true 05/01/2023 [place] Depression Scale Answer Date Recorded [place] Depression Scale Total 5 05/01/2023 The thought [...] as of this encounter Progress Notes * Loree Rodriguez PA-C - 08/24/2023 7:58 AM EDT 24w5d Doing well, no concerns. Reviewed third tri labs and glucola next visit. Saw MFM on 08/12 following thyroid med increase. Growth 58%ile. No further follow up needed. TSH done yesterday resulted at 2.39. Follows with endocrinology. Denies VB, LOF, contractions. Pos fm. RTC in 4 weeks Loree Rodriguez PA-C * Bernice Valiente LPN - 08/24/2023 7:44 AM EDT 24w5d Denies any concerns documented in this encounter Plan of Treatment Upcoming Encounters Date Type Department Care Team (Late st Contact Info) Description 2023 8:30 AM EDT [facility] [address] [facility] [place] [phone] Eneida Devries [address] [place] [address] 2023 9:00 AM EDT Office Visit Gynecology/Obstetrics [facility] [address] [place] [address] Loree Rodriguez PA-C [address] [place] [address] 04/29/2024 3:20 PM EST Office Visit Endocrinology, [place] [address] [place], [place] [phone] Stephanie Manley MD [address] [place], [place] [phone] Scheduled Orders Name Type Priority Associated Diagnoses Orde r Schedule 50-G GESTATIONAL GLUCOSE, 1 HOUR Lab Routine Normal in third trimester Expected: 09/07/2023 (Approximate), Expires: 08/23/2024 CBC WITH WBC DIFFERENTIAL AND ANEMIA REFLEX WORKUP Lab Routine Normal in third trimester Expected: 09/07/2023 (Approximate), Expires: 08/23/2024 SYPHILIS ANTIBODY SCREEN WITH REFLEX TO RPR Lab Routine Normal in third trimester Expected: 09/07/2023 (Approximate), Expires: 08/23/2024 Health Maintenance Due Date Last Done Comments Depression Screening 2000 Hepatitis B (1 of 3 - 19+ 3-dose series) 09/22/2007 COVID-19 Vaccine (2022- season) 2023 08/27/2020, 08/06/2020 Influenza Vaccine (FLU shot) (#1) 2023 02/09/2022, 07/04/2021 TSH 08/22/2024 08/23/2023, 06/28, 04/23/2023, [...] documented as of this encounter Care Teams Fish Trapper Relationship Specialty Start Date End Date Terri Iniguez MD [address] [place] [address] PCP - General Family Medicine 03/27/22 documented as of this encounter
--- OUTSIDE RECORDS SUMMARY | 2023-12-05 19:57 | External Medical Summary | Summary of Care ---
Author Name Unknown Organization [facility] Address [address] [place] [address] Phone [phone] Care Team Providers Care Business Intelligence Architect Name Role Phone Terri Iniguez MD Primary Care Provid er Reason for Visit * Reason Comments Ultrasound Encounter Details Date Type Department Care Team (Late st Contact Info) Description 07/16/2023 8:30 AM EST Office Visit Cementer Machine Joiner Obstetrics Maternal Medicine, [place] [address] [place], [place] [phone] Jimbo Villagran, DO [address] [place], [place] [phone] Multigravida of advanced maternal age in second trimester*; Obesity in , antepartum; Hypothyroidism affecting in second trimester; 19 weeks gestation of Allergies Active Allergy Reactions Criticality Noted Date Comments Cephalosporins Rash 02/12/2010 documented as of this encounter (statuses as of 07/16/2023) Medications Medication Sig Dispensed Refills Start Date [...] as of this encounter (statuses as of 07/16/2023) Active Problems Problem Noted Date Diagnosed Date [...] information was shared with the patient. The [place] [employer]ne[employer], Society for Maternal- Medicine, CDC and multiple medical associations strongly recommend the COVID-19 vaccine for women who are in any trimester, those attempting to become , women who have recently delivered, who are lactating as well as any other woman, regardless of age or ASSET PROTECTION OFFICER disorder. The only exceptions to receiving the [...] as of this encounter (statuses as of 07/16/2023) Resolved Problems Problem Noted Date Diagnosed Date Resolved Date Supervision of high risk pre gnancy in first trimester 05/08/2023 05/30/2023 with 9 completed weeks gestation 05/08/2023 05/24/2023 COVID-19 affecting , antepartum 10/28/2021 05/01/2023 Overview: dx'd 10/19 Supervision of normal first 07/04/2021 03/30/2022 Overview: Received covid vax x2 and booster documented as of this encounter (statuses as of 07/16/2023) Immunizations Name Administration Dates Next Due COVID-19 mRNA, LNP-s, No Pre serve, 2-Dose Series (DATY) 08/27/2020,08/06/2020 Seasonal Influenza, PF, 6 M & [...] money to get more. Never true 05/01/2023 [place] Depression Scale Answer Date Recorded [place] Depression Scale Total 5 05/01/2023 The thought [...] of this encounter Progress Notes * Jimbo Villagran DO - 07/16/2023 10:16 AM EST MATERNAL MEDICINE VISIT Ekaterina Abraham is at 19w1d who presents to [facility] for an ultrasound and follow-up of her high risk . PHYSICAL EXAM: General: pleasant, alert and oriented, no acute distress She is being seen today by Maternal- Medicine for the following reasons: Problem List Items Addressed This Visit Hypothyroidism affecting I recommended follow-up testing at least each trimester or as otherwise recommended by endocrinology. We reviewed typical goal for a TSH < 2.5 in . AMA (advanced maternal age) multigravida 35+ - Primary She presents for a anatomy survey secondary [...] identify all anomalies, but it is reassuring thatno anomalies were seen today. Obesity in , antepartum We reviewed today's ultrasound findings. (For full report, please refer to ultrasound report provided separately). Ms. Abraham's questions were answered to her satisfaction. RECOMMENDATIONS: No follow-up with Maternal Medicine is necessary unless further questions or indications arise. Thank you for allowing us to participate in the care of this patient. Please call with any questions. Jimbo Villagran DO 07/16/2023 10:16 AM documented in this encounter Miscellaneous Notes * Assessment & Plan Note - Jimbo Villagran DO - 07/16/2023 10:16 AM EST Associated Problem(s): Hypothyroidism affecting I recommended follow-up testing at least each trimester or as otherwise recommended by endocrinology. We reviewed typical goal for a TSH < 2.5 in . * Assessment & Plan Note - Jimbo Villagran DO - 07/16/2023 9:37 AM EST Associated Problem(s): AMA (advanced maternal age) multigravida 35+ She presents for a anatomy survey secondary [...] identify all anomalies, but it is reassuring thatno anomalies were seen today. documented in this encounter Plan of Treatment Upcoming Encounters Date Type Department Care Team (Late st Contact Info) Description 07/27/2023 7:45 AM EST [facility] [address] [place] [address] Loree Rodriguez PA-C [address] [place] [address] 04/29/2024 3:20 PM EST Office Visit [facility] [address] [place], [place] [phone] Stephanie Manley MD [address] [place], [place] [phone] Scheduled Orders Name Type Priority Associated Diagnoses Orde r Schedule MFM US PREG FOLLOW UP EACH FETUS Medical Imaging Routine Multigravida of advanced maternal age in second trimester Obesity in , antepartum Hypothyroidism affecting in second trimester 5 Occurrences starting 07/16/2023 until 01/14/2024 Health Maintenance Due Date Last Done Comments Depression Screening 2000 Hepatitis B (1 of 3 - 19+ 3-dose series) 09/22/2007 COVID-19 Vaccine ( - 2022- season) 2023 08/27/2020, 08/06/2020 Influenza [...] advanced maternal age in second trimester- Primary Obesity in , antepartum Obesity complicating , childbirth, or the puerperium, antepartum condition or complication Hypothyroidism affecting in second trimester 19 weeks gestation of state, incidental documented in this encounter Additional Health Concerns Infection Onset Date Last Indicated Resolved Time COVID-19 (confirmed) 10/18/2021 10/18/2021 documented as of this encounter Care Teams Business Intelligence Architect Relationship Specialty Start Date End Date Terri Iniguez MD [address] [place] [address] PCP - General Family Medicine 03/27/22 documented as of this encounter
--- OUTSIDE RECORDS SUMMARY | 2023-12-05 19:57 | External Medical Summary | Summary of Care ---
Author Name Unknown Organization [facility] Address [address] [place] [address] Phone [phone] Care Team Providers Care Corporate Consultant Name Role Phone Terri Iniguez MD Primary Care Provid er Reason for Visit * Reason Onset Date Comments Referral 07/27/2023 Encounter Details Date Type Department Care Team (Late st Contact Info) Description 07/27/2023 Telephone [facility] Obstetrics Maternal Medicine, [place] [address] [place] [address] [place], Nurse Oyster Cultivator [facility] [address], [place] [id number] Referral Allergies Active Allergy Reactions Criticality Noted [...] information was shared with the patient. The [employer], Society for Maternal- Medicine, CDC and multiple medical associations strongly recommend the COVID-19 vaccine for women who are in any trimester, those attempting to become , women who have recently delivered, who are lactating as well as any other woman, regardless of age or WOODEN FRAME BUILDER disorder. The only exceptions to receiving the vaccine are for those who have a contraindication or allergy to the vaccine or any component of the vaccine or with sincerely held adventist convictions. The CDC and ACOG encourages a [...] money to get more. Never true 05/01/2023 Perdido Depression Scale Answer Date Recorded Perdido Depression Scale Total 5 05/01/2023 The thought [...] time frame of 2-3 weeks at location [facility] with the indication of increase in thyroid medication. Referring Provider: Loree Rodriguez PA-C documented in this encounter Plan of Treatment Upcoming Encounters Date Type Department Care Team (Late st Contact Info) Description 08/13/2023 2:30 PM EDT Office Visit O[facility] Cultivator Obstetrics Maternal Medicine, [place] [address] [place] [address] Jimbo Villagran DO [address] [place] [address] 08/13/2023 2:30 PM EDT Imaging Rad[facility], [place] [address] [place] [address] 08/24/2023 7:45 AM EDT Office Visit Gynecology/Obstetrics Ev [facility] [address] [place] [address] Loree Rodriguez PA-C [address] [place] [address] 04/29/2024 3:20 PM EST Office Visit Endocrinology, [place] [address] [facility] [place] [address] Stephanie Manley MD [address] [place] [facility] [place] [address] Health Maintenance Due Date Last Done Comments [...] documented as of this encounter Care Teams Corporate Consultant Relationship Specialty Start Date End Date Terri Iniguez MD [address] [place] [address] PCP - General Family Medicine 03/27/22 documented as of this encounter
--- OUTSIDE RECORDS SUMMARY | 2023-12-05 19:57 | External Medical Summary ---
Author Name Unknown Address Unknown Organization [id number]:[facility] [place] - [address] [place] [address] Laboratory Report Ordering Provider Test Date Status NICOLETTE ANDERSON 2023 09:34:20 Final Observation Date Value Abnormality Reference (Units ) Status Iron 2023 09:34:20 103 33-151 (ug /dL) Final Iron-binding capacity 2023 09:34:20 259 250-425 (ug/dL) Final Transferrin Sat % 2023 09:34:20 40 15 -55 (%) Final Performing Location [facility] [place] - [address] [place] [address]
--- OUTSIDE RECORDS SUMMARY | 2023-12-05 19:57 | External Medical Summary | Summary of Care ---
Author Name Unknown Organization [facility] Address [address] [place] [address] Phone [phone] Care Team Providers Care Hospice Music Therapy Name Role Phone Terri Iniguez MD Primary Care Provid er Encounter Details Date Type Department Care Team (Late st Contact Info) Description 07/19/2023 Orders Only PATIENT PORTAL DO NOT DELETE THIS DEPT USED BY [place] [id number] Allergies Active Allergy Reactions Criticality Noted Date Comments Cephalosporins Rash 02/12/2010 documented as of this encounter (statuses as of 07/19/2023) Medications Medication Sig Dispensed Refills Start Date [...] as of this encounter (statuses as of 07/19/2023) Active Problems Problem Noted Date Diagnosed Date [...] information was shared with the patient. The [employer], Society for Maternal- Medicine, CDC and multiple medical associations strongly recommend the COVID-19 vaccine for women who are in any trimester, those attempting to become , women who have recently delivered, who are lactating as well as any other woman, regardless of age or DISPATCHER TOW TRUCK disorder. The only exceptions to receiving the vaccine are for those who have a contraindication or allergy to the vaccine or any component of the vaccine or with sincerely held taoist convictions. The CDC and ACOG encourages a COVID-19 vaccine booster for women, given the risk of severe complications from COVID-19 in . Estimated Date of Delivery Comme nts Yes 12/09/2023 Based on last me nstrual period of 03/04/2023 (Exact Date) documented as of this encounter (statuses as of 07/19/2023) Resolved Problems Problem Noted Date Diagnosed Date Resolved Date Supervision of high risk pre gnancy in first trimester 05/08/2023 05/30/2023 with 9 completed weeks gestation 05/08/2023 05/24/2023 COVID-19 affecting , antepartum 10/28/2021 05/01/2023 Overview: dx'd 10/19 Supervision of normal first 07/04/2021 03/30/2022 Overview: Received covid vax x2 and booster documented as of this encounter (statuses as of 07/19/2023) Immunizations Name Administration Dates Next Due COVID-19 mRNA, LNP-s, No Pre serve, 2-Dose Series ([employer]) 08/27/2020,08/06/2020 Seasonal Influenza, PF, 6 M & [...] money to get more. Never true 05/01/2023 Stuart Depression Scale Answer Date Recorded Stuart Depression Scale Total 5 05/01/2023 The thought [...] 07/27/2023 7:45 AM EST Office Visit Gynecology/Obstetrics [facility] [address] [place] [address] Loree Rodriguez PA-C [address] [place] [address] 04/29/2024 3:20 PM EST Office Visit Endocrinology, [place] [address], [place] [phone] Stephanie Manley MD [address] [place] [address] Health Maintenance Due Date Last Done Comments [...] documented as of this encounter Care Teams Hospice Music Therapy Relationship Specialty Start Date End Date Terri Iniguez MD [address] [place] [address] PCP - General Family Medicine 03/27/22 documented as of this encounter
--- NOTE | 2023-12-05 23:20 | Delivery Summary ---
Vaginal Delivery Summary Date of Service December 05, 2023 Vaginal Delivery Summary live male HOWIE over intact perineum with delayed cord clamping and Apgars 8/9 weight pending. Cord blood obtained followed by spontaneous delivery of intact placenta. No tears. Red rubber cath. used to strait cath bladder for 535 ml. clear urine. QBL 200 ml. Final sponge and instrument count are correct. Mom and baby stable.
[2023-12-06] MEDS ORDERED: OXYTOCIN 30 UNITS/NSS 30 UNITS/500 ML BAG IV PRN (01:35)
[2023-12-06] MEDS ORDERED: HYDROCORTISONE ACETATE 25 MG SUPP PR PRN (01:35)
[2023-12-06] MEDS: DIPHTHER/TETAN/PERTUS Vaccine (Tdap, Adol/Adult) 0.5mL IM ONE (03:01)
[2023-12-06] MEDS: IBUPROFEN 600 MG TAB PO PRN (03:51)
[2023-12-06] MEDS: LEVOTHYROXINE SODIUM 112 MCG TABLET PO SCH (06:15)
[2023-12-06] MEDS: BENZOCAINE 20% SPRY 85 APPLN/85 GM CAN EXT PRN (06:16)
[2023-12-06] MEDS: ACETAMINOPHEN 325 MG TAB PO PRN (06:22)
[2023-12-06] MEDS ORDERED: LEVOTHYROXINE SODIUM 112 MCG TABLET PO SCH (06:30)
[2023-12-06] MEDS: PRENATAL VITAMIN 1 TAB PO SCH (08:05)
[2023-12-06] MEDS: DOCUSATE SODIUM 100 MG CAP PO SCH (08:06)
[2023-12-06] MEDS: FERROUS SULFATE 325 MG TAB PO SCH (08:06)
[2023-12-06 08:29] LABS: Hematocrit (blood only) 33.8 % (37.0-47.0); Hemoglobin 11.4 g/dl (12.0-16.0); Mean Corpuscular Hemoglobin 31.1 pg (25.0-34.0); Mean Corpuscular Hgb Conc 33.7 g/dL (32.0-36.0); Mean Corpuscular Volume 92.1 fL (80.0-100.0); Mean Platelet Volume 9.4 fL (9.4-12.4); Platelet Count 189 K/uL (130-400); RDW Standard Deviation 43.6 fL (36.4-46.3); Red Blood Count 3.67 M/uL (4.20-5.40); White Blood Count 13.74 K/ul (4.8-10.8)
--- NOTE | 2023-12-06 08:42 | Anesthesia Procedure Note ---
Date of Service December 06, 2023 Anesthesia Post Epidural Note Vital Signs Vital Signs: Temp Pulse Resp BP Pulse Ox O2 Del Method 98.1 F 75 18 104/66 98 Room Air 12/06/23 07:30 12/06/23 07:30 12/06/23 07:30 12/06/23 07:30 12/06/23 07:30 12/06/23 07:30 Pain Intensity Perineal: Pain Intensity: 3 Notes Mental Status: alert / awake / arousable and participated in evaluation Nausea / Vomiting: adequately controlled Pain: adequately controlled Airway Patency, RR, SpO2: stable & adequate BP & HR: stable & adequate Hydration State: stable & adequate Neuraxial Anesthesia: was administered and sensory block is resolving Anesthetic Complications: no major complications apparent and Pt Satisfied with anesthetic care Epidural: Removed without complications and With tip intact
[2023-12-06] MEDS ORDERED: NON-FORMULARY MEDICATION (Pnv Cmb#95-Ferrous Fumarate-Fa [Prenatal] 28 mg iron- 800 mcg Ta PO SCH (09:00)
--- NOTE | 2023-12-06 09:53 | Obstetrical Progress Note ---
Date of Service December 06, 2023 Assessment & Plan Admission and Anticipated Discharge Date Admission Date: December 05, 2023 OB Progress Note Patient is a 2 para 2 admitted for induction at 39 weeks 4 days ges tation. Her preoperative hemoglobin was 12.0 postdelivery was 11.4. She had a spontaneous vaginal delivery left occiput anterior position over an intact perineum. There were no lacerations. At the present time her perineum is swollen but intact. Pain is well-controlled. She is ambulating well. Vaginal bleeding is minimal. Results & Data Vital Signs (Past 12 Hours) Vital Signs Temp Pulse Pulse Pulse Resp BP BP 12/06/23 07:30 36.7 C 75 18 104/66 12/06/23 05:30 36.4 C L 71 18 12/06/23 01:45 36.6 C 76 18 12/06/23 01:12 75 109/64 12/06/23 01:10 18 12/06/23 00:57 71 112/64 12/06/23 00:43 73 119/64 12/06/23 00:40 18 12/06/23 00:27 71 114/62 12/06/23 00:12 82 120/67 12/06/23 00:10 18 12/05/23 23:58 86 120/69 12/05/23 23:55 18 12/05/23 23:42 86 96/75 L 12/05/23 23:40 18 12/05/23 23:27 85 116/77 12/05/23 23:25 18 12/05/23 23:16 90 12/05/23 23:12 90 110/57 L 12/05/23 23:11 98 H 12/05/23 23:10 18 12/05/23 23:06 95 H 12/05/23 23:01 102 H 12/05/23 22:57 122 H 12/05/23 22:56 102 H 12/05/23 22:51 115 H 12/05/23 22:46 93 H 12/05/23 22:45 82 12/05/23 22:44 86 107/62 12/05/23 22:41 84 12/05/23 22:36 89 12/05/23 22:31 91 H 12/05/23 22:30 80 18 119/67 12/05/23 22:26 90 12/05/23 22:21 89 12/05/23 22:16 94 H 12/05/23 22:15 18 12/05/23 22:15 36.7 C 18 12/05/23 22:13 97 H 142/67 H 12/05/23 22:11 127 H 12/05/23 22:06 95 H 12/05/23 22:01 81 12/05/23 22:00 18 12/05/23 22:00 18 12/05/23 21:58 77 113/61 12/05/23 21:56 79 12/05/23 21:51 90 BP Pulse Ox O2 Del Method 12/06/23 07:30 98 Room Air 12/06/23 05:30 116/76 96 Room Air 12/06/23 01:45 113/72 97 Room Air 12/06/23 01:12 12/06/23 01:10 12/06/23 00:57 12/06/23 00:43 12/06/23 00:40 12/06/23 00:27 12/06/23 00:12 12/06/23 00:10 12/05/23 23:58 12/05/23 23:55 12/05/23 23:42 12/05/23 23:40 12/05/23 23:27 12/05/23 23:25 12/05/23 23:16 98 12/05/23 23:12 12/05/23 23:11 97 12/05/23 23:10 12/05/23 23:06 98 12/05/23 23:01 99 12/05/23 22:57 83 L 12/05/23 22:56 100 12/05/23 22:51 100 12/05/23 22:46 100 12/05/23 22:45 82 L 12/05/23 22:44 12/05/23 22:41 100 12/05/23 22:36 97 12/05/23 22:31 98 12/05/23 22:30 12/05/23 22:26 99 12/05/23 22:21 99 12/05/23 22:16 99 12/05/23 22:15 12/05/23 22:15 12/05/23 22:13 12/05/23 22:11 95 12/05/23 22:06 100 12/05/23 22:01 99 12/05/23 22:00 12/05/23 22:00 12/05/23 21:58 12/05/23 21:56 100 12/05/23 21:51 100
[2023-12-06] MEDS: bisacodyL 5 MG TABEC PO SCH (20:05)
[2023-12-07] MEDS ORDERED: bisacodyL 10 MG SUPP PR PRN
[2023-12-07 03:32] VITALS: PULSE 83
[2023-12-07 06:18] LABS: Hematocrit (blood only) 34.3 % (37.0-47.0); Hemoglobin 11.5 g/dl (12.0-16.0)
--- NOTE | 2023-12-07 09:21 | Obstetrical Progress Note ---
Date of Service December 07, 2023 Subjective Ambulation: ambulating normally Voiding: no voiding problems Passing Gas:: Yes Diet Tolerance:: regular diet Lochia:: Small Feeding Type:: breast feeding Current Pain Level(1-10): 0 doing well. plans to go home today Physical Exam Constitutional WD/WN, vitals as above Gastrointestinal (Abdomen) Inspection/Auscultation: abdomen normal to inspection abdomen soft and non-tender. fundus firm below U Musculoskeletal Extremities: extremities normal to inspection Skin no rashes, warm and dry Neurologic patellar DTR's 2+ bilat, sensation intact Psychiatric A+Ox3, euthymic affect Results & Data Vital Signs (Past 12 Hours) Vital Signs Temp Pulse Resp BP Pulse Ox O2 Del Method 12/06/23 23:35 36.7 C 83 16 102/65 96 Room Air Laboratory Results 12/05/23 12/06/23 12/07/23 08:37 08:07 05:51 WBC 9.30 13.74 H RBC 3.87 L 3.67 L Hgb 12.0 11.4 L 11.5 L Hct 34.9 L 33.8 L 34.3 L MCV 90.2 92.1 MCH 31.0 31.1 MCHC 34.4 33.7 RDW Std Deviation 42.5 43.6 RDW Coeff of Torres 13.0 13.0 Plt Count 205 189 MPV 9.2 L 9.4 Blood Type O Positive Antibody Screen NEGATIVE
[2023-12-07 09:40] VITALS: BP 114/80; RESP 18; TEMP 97.7; O2SAT 97
== END 2023-12-07 10:55 | disposition home or self-care (01) | DRG 807 ==
LOC: 4S1 07:54 → 4E2 12-06 01:38